=== PATIENT | female | born 1960 | race Caucasian/White ===

== ENCOUNTER 2022-06-29 18:26 | Inpatient (IN) | payer OTHER ==
[~2022-06-29] VITALS: Ht 160 cm; Wt 91.9 kg
[2022-06-29 19:20] LABS: BASOPHILS ABSOLUTE AUTO 0.05 K/mm3 (0.00-0.23); BASOPHILS PERCENT AUTO 1 % (0-2); EOSINOPHILS ABSOLUTE AUTO 0.13 K/mm3 (0.00-0.68); EOSINOPHILS PERCENT AUTO 2 % (0-6); Hematocrit 38.1 % (33.0-51.0); Hemoglobin 12.9 g/dL (11.5-16.0); IMMATURE GRAN ABSOLUTE AUTO 0.03 K/mm3 (0.00-0.10); IMMATURE GRAN PERCENT AUTO 0 % (0-1); LYMPHOCYTES ABSOLUTE AUTO 2.12 K/mm3 (0.84-5.20); LYMPHOCYTES PERCENT AUTO 30 % (21-46); MONOCYTES ABSOLUTE AUTO 0.56 K/mm3 (0.16-1.47); MONOCYTES PERCENT AUTO 8 % (4-13); Mean Corpuscular HGB 29.3 pg (26.0-34.0); Mean Corpuscular HGB Conc 33.9 g/dL (31.5-36.5); Mean Corpuscular Volume 87 fL (80-100); Mean Platelet Volume 10.1 fL (9.1-12.4); NEUTROPHILS ABSOLUTE AUTO 4.22 K/mm3 (1.96-9.15); NEUTROPHILS PERCENT AUTO 59 % (41-73); Platelet Count 194 K/mm3 (150-400); RDW Coefficient Variation 13.1 % (11.7-14.2); RDW Standard Deviation 40.9 fL (35.1-46.3); White Blood Cell Count 7.11 K/mm3 (4.00-11.30)
[2022-06-29 19:39] LABS: Albumin, Blood 3.3 g/dL (3.4-5.0); Albumin/Globulin Ratio 0.8 (0.8-1.8); Bilirubin, Total 0.2 mg/dL (0.1-1.0); Bun/Creatinine Ratio 18.6 (12.0-20.0); Calcium, Blood 8.8 mg/dL (8.5-10.1); Creatinine, Blood 1.13 mg/dL (0.40-1.00); Globulin, Blood 4.1 g/dL (2.2-4.0); Potassium, Blood 4.2 mmol/L (3.5-5.5); Total Protein, Blood 7.4 g/dL (6.4-8.2)
[2022-06-29 19:58] LABS: Source, Urine Clean Catch
[2022-06-29 20:02] LABS: Appearance, Urine Clear (Clear); Bilirubin, Urine Neg (Neg); Blood, Urine Neg (Neg); Glucose Qualitative, Urine 4+ (Neg); Ketones, Urine Neg (Neg); Leukocyte Esterase, Urine Neg (Neg); Nitrite, Urine Neg (Neg); Protein, Urine 3+ (Neg); Specific Gravity, Urine 1.015 (1.003-1.022); Urobilinogen, Urine NORM (Normal)
[2022-06-29 20:07] LABS: Color, Urine Pale Yellow (P-Yellow)
[2022-06-29 20:09] LABS: Bacteria Few /hpf; Red Blood Cells, Urine 0-2 /hpf (0-2); Squamous Epithelial Cells Rare /hpf (Few); White Blood Cells, Urine 0-2 /hpf (0-5)
[2022-06-29 21:11] LABS: D-Dimer, Quantitative 2.44 mg/L FEU (0.00-0.52); International Normalized Ratio 1.04; Prothrombin Time Results 10.9 Sec (9.7-11.5)
[2022-06-29 21:27] LABS: Anti-Xa UFH, PHA Monitoring <0.10 IU/mL
[2022-06-30] MEDS ORDERED: EZET10 (01:05)
[2022-06-30] MEDS ORDERED: AMLO5 PO (01:09)
[2022-06-30] MEDS ORDERED: ZYRTEC10 M1 PO (01:09)
[2022-06-30] MEDS ORDERED: QUET100 PO (01:09)
[2022-06-30] MEDS ORDERED: GLIM2 PO (01:10)
[2022-06-30] MEDS ORDERED: ZOCOR20 MG PO (01:11)
[2022-06-30] MEDS ORDERED: LISI5 PO (01:13)
[2022-06-30] MEDS ORDERED: LATUDA120 M1 PO (01:13)
[2022-06-30] MEDS ORDERED: BENADRYL25 MG PO (01:15)
[2022-06-30] MEDS ORDERED: VILAZODONE HCL20 MG PO (01:16)
[2022-06-30] MEDS ORDERED: PREG150 (01:16)
[2022-06-30] MEDS ORDERED: OMEP20ER PO (01:17)
[2022-06-30 04:07] LABS: BASOPHILS ABSOLUTE AUTO 0.05 K/mm3 (0.00-0.23); BASOPHILS PERCENT AUTO 1 % (0-2); EOSINOPHILS ABSOLUTE AUTO 0.17 K/mm3 (0.00-0.68); EOSINOPHILS PERCENT AUTO 2 % (0-6); Hematocrit 36.7 % (33.0-51.0); Hemoglobin 12.4 g/dL (11.5-16.0); IMMATURE GRAN ABSOLUTE AUTO 0.03 K/mm3 (0.00-0.10); IMMATURE GRAN PERCENT AUTO 0 % (0-1); LYMPHOCYTES ABSOLUTE AUTO 2.94 K/mm3 (0.84-5.20); LYMPHOCYTES PERCENT AUTO 39 % (21-46); MONOCYTES ABSOLUTE AUTO 0.53 K/mm3 (0.16-1.47); MONOCYTES PERCENT AUTO 7 % (4-13); Mean Corpuscular HGB 29.2 pg (26.0-34.0); Mean Corpuscular HGB Conc 33.8 g/dL (31.5-36.5); Mean Corpuscular Volume 87 fL (80-100); Mean Platelet Volume 10.1 fL (9.1-12.4); NEUTROPHILS ABSOLUTE AUTO 3.87 K/mm3 (1.96-9.15); NEUTROPHILS PERCENT AUTO 51 % (41-73); Platelet Count 182 K/mm3 (150-400); RDW Coefficient Variation 13.3 % (11.7-14.2); RDW Standard Deviation 40.9 fL (35.1-46.3); Red Blood Cell Count 4.24 M/mm3 (3.80-5.20); White Blood Cell Count 7.59 K/mm3 (4.00-11.30)
[2022-06-30 04:42] LABS: LDL/HDL RATIO 3.5
[2022-06-30 04:43] LABS: Alanine Aminotransfer (ALT/SGP 65 U/L (12-78); Albumin, Blood 3.2 g/dL (3.4-5.0); Albumin/Globulin Ratio 0.9 (0.8-1.8); Alk Phos 89 U/L (50-136); Anion Gap 6 mmol/L (6-16); Aspartate Aminotrans (AST/SGOT 42 U/L (12-37); Bilirubin, Total 0.2 mg/dL (0.1-1.0); Blood Urea Nitrogen 23 mg/dL (8-24); Bun/Creatinine Ratio 17.7 (12.0-20.0); CHOL/HDL RATIO 6.4; CO2, Blood 28 mmol/L (21-32); Chloride, Blood 107 mmol/L (98-108); Cholesterol 231 mg/dL (50-200); Globulin, Blood 3.6 g/dL (2.2-4.0); Glomerular Filtration Rate 47 (60-); Glucose, Blood 261 mg/dL (70-99); HDL Cholesterol 36 mg/dL (>39); Low Density Lipoprotein Chol 125 mg/dL (0-110); Potassium, Blood 4.2 mmol/L (3.5-5.5); Sodium, Blood 141 mmol/L (136-145); Total Protein, Blood 6.8 g/dL (6.4-8.2); Triglycerides 348 mg/dL (30-160); Very Low Density Lipoprot Chol 69 mg/dL (6-32)
--- NOTE | 2022-06-30 06:45 | NUR ---
SHIFT SUMMARY ED ADMIT TO PCU13 THIS SHIFT. A/OX4, SBA TO BATHROOM. DENIES CHEST PAIN/PRESSURE AT THIS TIME, HEPARIN DRIP RUNNING. TELE SR IN THE 80S. HEALED LESIONS TO BUE/BLE, PT STATES SCABIES INFECTION SEVERAL MONTHS AGO. CARDIOLOGY CONSULT CALLED IN TO ANSWERING SERVICE. VSS, NO ACUTE CHANGES AT THIS TIME. BED IN LOWEST POSITION WITH CALL LIGHT IN REACH. WILL CONTINUE TO MONITOR AND REPORT TO ONCOMING RN.
--- NOTE | 2022-06-30 10:47 | NUR ---
CARE NOTE DR. CHÁVEZ REQUESTED THAT THIS NURSE REVIEW IF PT RECEIVED 325 OF ASPIRIN IN ED, PER EMAR PT DID RECEIVE 325 DOSE WELL DOSE DUE THIS AM. SEE EMAR TO VERIFY.
--- NOTE | 2022-06-30 12:55 | NUR ---
CARE NOTE PT BACK FROM [facility] ATTENDANT APPROX. 1225. TR BAND IN PLACE ON R RADIAL SITE W/ NO SIGNS OF APPARENT BLEEDING OR HEMATOMA NOTED. FAMILY IS AT BEDSIDE, VSS, PT IS ON RA AND EATING A SNACK. TRAY ORDERED BY THIS RN. PT REPORTED THAT SHE DOES NOT HAVE HER HOME MEDS THAT ARE RECONCILED IN EMAR, PHARMACY MADE AWARE. WILL CONTINUE TO MONITOR.
--- NOTE | 2022-06-30 16:40 | NUR ---
CARE NOTE TR BAND DEFLATED AT 1610, ARM BOARD IN PLACE.
[2022-06-30 16:49] LABS: SARS-Cov-2 (COVID-19) PCR, MMC NEGATIVE (NEGATIVE)
--- NOTE | 2022-06-30 16:59 | NUR ---
SHIFT SUMMARY PT IS ALERT AND ORIENTED X 4, VSS. SPO2 >95% VIA ROOM AIR, HR SINUS RYTHM 90'S PER TELE MONITORING. PT ARRIVED BACK FROM [facility] APPROX. 1215. SHE HAS A RIGHT RADIAL ACCESS SITE. TR BAND IS DEFLATED, ARM BOARD IS IN PLACE. THERE IS NO APPARENT SIGN OF BLEEDING. SHE HAS CONTINUED TO DENY FEELINGS OF CHEST PAIN/PRESSURE. SHE DENIES FEELING SOB. NAUSEA WAS REPORTED THIS MORNING BUT HAS SINCE RESOLVED. SHE HAS DENIED FEELINGS OF NUMBNESS OR TINGLING IN EXTREMETIES. NO COUGH NOTED. SHE HAS AMBULATED TO BATHROOM A SBA TO MANAGE LINES. PG IN [place] IS SALINE LOCKED. IV IN RIGHT FOREARM IS SALINE LOCKED. FAMILY HAS BEEN AT BEDSIDE DURING SHIFT. HAS BEEN AT BEDSIDE WELL WAITING IN ICU LOUNGE. PT'S COMES AND GOES FROM PT ROOM MULTIPLE TIMES PER HOUR AND HAS BEEN ASKED TO REDUCE NUMBER OF TIMES HE ENTERS/EXITS PT ROOM BY THIS NURSE. TRAY NOW HAS BEEN ORDERED 2X BY THIS NURSE W/ NO SUCCESS. SNACKS HAVE BEEN BROUGHT TO THE PT SINCE SHE DID NOT RECIEVE A LUNCH TRAY. DAUGHTER AND ARE NOW AT BEDSIDE. WILL CONTINUE TO MONITOR UNTIL REPORT GIVEN. CALL LIGHT IS IN REACH.
--- NOTE | 2022-06-30 21:22 | NUR ---
PER CHARGE AND NURSE SKIN LAP BONDER, OK FOR PT'S FAMILY TO BOARD IN ROOM OVERNIGHT
--- NOTE | 2022-07-01 06:38 | NUR ---
SHIFT SUMMARY: uneventful with no acute events. Patient's father and sister at bedside; they boarded overnight. Pt is pleasant and cooperative; oriented and afebrile. She remains on telemetry overnight with no c/o cardiac sx. Lungs are clear. She is SBA but could probably be independent in her room with no cords or lines. No new integumentary issues noted. GI/ WDL. She is currently q6hr POCT BG checks. Unsure if want to transition to AC/HS etc. Will pass along to day shift. R radial site looks C/D/I with no hematoma or hemmorhage.
[2022-07-01 06:43] LABS: BASOPHILS ABSOLUTE AUTO 0.06 K/mm3 (0.00-0.23); BASOPHILS PERCENT AUTO 1 % (0-2); EOSINOPHILS ABSOLUTE AUTO 0.19 K/mm3 (0.00-0.68); EOSINOPHILS PERCENT AUTO 2 % (0-6); Hematocrit 38.9 % (33.0-51.0); Hemoglobin 12.8 g/dL (11.5-16.0); IMMATURE GRAN ABSOLUTE AUTO 0.02 K/mm3 (0.00-0.10); IMMATURE GRAN PERCENT AUTO 0 % (0-1); LYMPHOCYTES PERCENT AUTO 24 % (21-46); MONOCYTES ABSOLUTE AUTO 0.58 K/mm3 (0.16-1.47); MONOCYTES PERCENT AUTO 6 % (4-13); Mean Corpuscular HGB 29.2 pg (26.0-34.0); Mean Corpuscular HGB Conc 32.9 g/dL (31.5-36.5); Mean Corpuscular Volume 89 fL (80-100); Mean Platelet Volume 10.3 fL (9.1-12.4); NEUTROPHILS ABSOLUTE AUTO 6.59 K/mm3 (1.96-9.15); NEUTROPHILS PERCENT AUTO 67 % (41-73); Platelet Count 206 K/mm3 (150-400); RDW Coefficient Variation 13.6 % (11.7-14.2); RDW Standard Deviation 43.8 fL (35.1-46.3); Red Blood Cell Count 4.39 M/mm3 (3.80-5.20); White Blood Cell Count 9.84 K/mm3 (4.00-11.30)
[2022-07-01 07:01] LABS: Albumin, Blood 3.2 g/dL (3.4-5.0); Albumin/Globulin Ratio 0.8 (0.8-1.8); Bilirubin, Total 0.4 mg/dL (0.1-1.0); Calcium, Blood 9.6 mg/dL (8.5-10.1); Creatinine, Blood 1.2 mg/dL (0.40-1.00); Globulin, Blood 3.8 g/dL (2.2-4.0); Potassium, Blood 4.4 mmol/L (3.5-5.5)
--- NOTE | 2022-07-01 17:03 | NUR ---
SHIFT SUMMARY PT IS ALERT AND ORIENTED X 4, SHE IS PLEASANT AND COOPERATIVE W/ CARE AND IS ABLE TO MAKE HER NEEDS KNOWN. VSS. PER TELE MONITORING, HR IS SR-ST 90-110, BP STABLE, SHE HAS CONTINUED TO DENY FEELINGS OF CHEST PAIN/PRESSURE. SPO2 >95% VIA ROOM AIR, SHE DENIES FEELING SOB. DRY, NON-PRODUCTIVE COUGH NOTED. SHE DID REPORT FEELING NAUSEOUS ONCE DURING SHIFT THAT HAS SEEMED TO RESOLVE, SEE EMAR FOR NAUSEA MANAGEMENT. SHE HAS BEEN INDEPENDENT IN ROOM AND IS STEADY ON HER FEET, SHE HAS AMBULATED 2X IN HALLS W/ DAUGHTER AT HER SIDE. PG IN [place] IS SALINE LOCKED, L FOREARM IV IS SALINE LOCKED. SHE HAS ALSO SAT IN CHAIR FOR MEALS. R RADIAL ACCESS SITE REMAINS FREE FROM APPARENT BLEEDING AND IS COVERED W/ TRANSPARENT DRESSING, ARM BOARD IN PLACE SO TO REMIND PT TO LIMIT USE OF R ARM. NO ACUTE CHANGES NOTED. WILL CONTINUE TO MONITOR UNTIL REPORT GIVEN, PT NOW APPEARS TO BE SLEEPING, DAUGHTER IS STILL AT BEDSIDE. CALL LIGHT IN REACH.
--- NOTE | 2022-07-01 22:47 | NUR ---
ASSUMPTION OF CARE THIS RN ASSUMED CARE OF PT AT 1900. PT LYING DOWN IN BED, DAUGHTER AT BEDSIDE. VS; BP 148/83, SR W/HR 88, SP02 95% ON RA, RR 16, 98.8 F. PT DENIES CP OR PRESSURE, DENIES SOB, DIZZINESS, LIGHTHEADNESS, OR PALPITATIONS. PT JUST STATES SHE IS "TIRED" AND IS "READY FOR BED". PT EXPRESSES NO CONCERNS AT THIS TIME. PT UP INDEPENDENTLY IN THE ROOM AND TOLERATES WELL. CALL LIGHT IN REACH
--- NOTE | 2022-07-02 05:40 | NUR ---
SHIFT SUMMARY PT SLEPT WELL THROUGHOUT THE NIGHT. NO CHANGES FROM ASSUMPTION OF CARE NOTE. DAUGHTER STAYED OVERNIGHT AND WILL FOLLOW PT UP WHEN TRANSFERRED. PT DENIES CP, PRESSURE OR SOB. VSS. PT UP TO USE BATHROOM INDEPENDENTLY. NO ACUTE CHANGES THROUGHOUT THIS SHIFT. CALL LIGHT IN REACH.
[2022-07-02 06:21] LABS: BASOPHILS ABSOLUTE AUTO 0.07 K/mm3 (0.00-0.23); BASOPHILS PERCENT AUTO 1 % (0-2); EOSINOPHILS ABSOLUTE AUTO 0.14 K/mm3 (0.00-0.68); EOSINOPHILS PERCENT AUTO 1 % (0-6); Hemoglobin 12.9 g/dL (11.5-16.0); IMMATURE GRAN ABSOLUTE AUTO 0.05 K/mm3 (0.00-0.10); IMMATURE GRAN PERCENT AUTO 1 % (0-1); LYMPHOCYTES ABSOLUTE AUTO 1.74 K/mm3 (0.84-5.20); LYMPHOCYTES PERCENT AUTO 16 % (21-46); MONOCYTES PERCENT AUTO 5 % (4-13); Mean Corpuscular HGB 28.5 pg (26.0-34.0); Mean Corpuscular HGB Conc 33.1 g/dL (31.5-36.5); Mean Corpuscular Volume 86 fL (80-100); Mean Platelet Volume 9.9 fL (9.1-12.4); NEUTROPHILS ABSOLUTE AUTO 8.25 K/mm3 (1.96-9.15); NEUTROPHILS PERCENT AUTO 77 % (41-73); NRBC ABSOLUTE 0.02 K/mm3 (0.00-0.02); NRBC Auto 0.2 /100 WBC (0.0-0.2); Platelet Count 214 K/mm3 (150-400); RDW Coefficient Variation 13.5 % (11.7-14.2); RDW Standard Deviation 41.4 fL (35.1-46.3); Red Blood Cell Count 4.52 M/mm3 (3.80-5.20); White Blood Cell Count 10.75 K/mm3 (4.00-11.30)
[2022-07-02 07:28] LABS: Albumin, Blood 3.4 g/dL (3.4-5.0); Albumin/Globulin Ratio 0.9 (0.8-1.8); Bilirubin, Total 0.7 mg/dL (0.1-1.0); Bun/Creatinine Ratio 17.3 (12.0-20.0); Calcium, Blood 9.7 mg/dL (8.5-10.1); Creatinine, Blood 1.1 mg/dL (0.40-1.00); Globulin, Blood 3.8 g/dL (2.2-4.0); Potassium, Blood 4.3 mmol/L (3.5-5.5); Total Protein, Blood 7.2 g/dL (6.4-8.2)
--- NOTE | 2022-07-02 10:14 | NUR ---
REPORT CALLED TO CRITICAL CARE UNIT AT [facility] AT 1015.
--- NOTE | 2022-07-02 10:15 | NUR ---
TRANSFER SUMMARY PT WAS PICKED UP BY [facility] AT APPROXIMATELY 0945. ALL PERSONAL BELONGINGS WERE IN THE POSSESSION OF FAMILY. HAND OFF REPORT GIVEN TO MEDICAL TRANSPORT PERSONNEL.
== END 2022-07-02 09:38 | disposition short-term general hospital (02) | DRG 282 ==
LOC: ER 18:26 → PCU 23:00
PROVIDERS: Emergency Medicine; Family Medicine; Internal Medicine Cardiovascular Disease; Student in an Organized Health Care Education/Training Program; ADMIT Family Medicine
PROC: 4A023N7 Measurement of Cardiac Sampling and Pressure, Left Heart, Percutaneous Approach (ICD-10-PCS; principal; 2022-06-30)
PROC: B211YZZ Fluoroscopy of Multiple Coronary Arteries using Other Contrast (ICD-10-PCS; 2022-06-30)
PROC: B215YZZ Fluoroscopy of Left Heart using Other Contrast (ICD-10-PCS; 2022-06-30)
DX: I21.4 Non-ST elevation (NSTEMI) myocardial infarction (principal); Z20.822 Contact with and (suspected) exposure to COVID-19; E11.22 Type 2 diabetes mellitus with diabetic chronic kidney disease; E11.51 Type 2 diabetes mellitus with diabetic peripheral angiopathy without gangrene; Z28.21 Immunization not carried out because of patient refusal; I25.10 Atherosclerotic heart disease of native coronary artery without angina pectoris; E78.5 Hyperlipidemia, unspecified; E78.41 Elevated Lipoprotein(a); I12.9 Hypertensive chronic kidney disease with stage 1 through stage 4 chronic kidney disease, or unspecified chronic kidney disease; N18.30 Chronic kidney disease, stage 3 unspecified; J44.9 Chronic obstructive pulmonary disease, unspecified; I05.9 Rheumatic mitral valve disease, unspecified; Z95.1 Presence of aortocoronary bypass graft; Z98.51 Tubal ligation status; Z90.710 Acquired absence of both cervix and uterus; Z87.891 Personal history of nicotine dependence; Z88.8 Allergy status to other drugs, medicaments and biological substances; Z79.84 Long term (current) use of oral hypoglycemic drugs; Z79.899 Other long term (current) drug therapy
CPT/HCPCS: 36415; 71045; 71260; 76937; 80053; 80061; 81001; 82947; 83036; 83690; 84443; 84484; 85025; 85379; 85520; 85610; 85730; 93005; 93010; 93306; 93458; 93880; 96365; 99152; 99153; 99285-25; A9270; C1751; C1769; C1887; C1894; J1644; J1650; J1815; J2250; J3010; J7030; J7040; J7050; J7120; Q9967; U0004

== ENCOUNTER 2022-09-25 11:47 | Emergency (ER) | payer OTHER ==
[~2022-09-25] VITALS: Ht 160 cm; Wt 89.8 kg
[~2022-09-25 11:47] MED LIST: AMLO5 PO; BENADRYL25 MG PO; DULCOLAX STOOL100 M3 PO; EZET10 PO; GLIM2 PO; GLIP5 PO; HYDR1TAB94 PO; LATUDA120 M1 PO; LISI5 PO; LOSA25 PO; METO25 PO; OMEP20ER PO; PREG150 PO; QUET100 PO; SEROQUEL100 MG PO; VILAZODONE HCL20 MG PO; WARF3 PO; ZOCOR20 MG PO; ZYRTEC10 M1 PO
[2022-09-25 12:13] LABS: BASOPHILS ABSOLUTE AUTO 0.04 K/mm3 (0.00-0.23); BASOPHILS PERCENT AUTO 1 % (0-2); EOSINOPHILS ABSOLUTE AUTO 0.13 K/mm3 (0.00-0.68); EOSINOPHILS PERCENT AUTO 2 % (0-6); Hemoglobin 11.6 g/dL (11.5-16.0); IMMATURE GRAN ABSOLUTE AUTO 0.02 K/mm3 (0.00-0.10); IMMATURE GRAN PERCENT AUTO 0 % (0-1); LYMPHOCYTES ABSOLUTE AUTO 1.72 K/mm3 (0.84-5.20); LYMPHOCYTES PERCENT AUTO 23 % (21-46); MONOCYTES ABSOLUTE AUTO 0.47 K/mm3 (0.16-1.47); MONOCYTES PERCENT AUTO 6 % (4-13); Mean Corpuscular HGB 28.6 pg (26.0-34.0); Mean Corpuscular HGB Conc 32.2 g/dL (31.5-36.5); Mean Corpuscular Volume 89 fL (80-100); Mean Platelet Volume 9.6 fL (9.1-12.4); NEUTROPHILS ABSOLUTE AUTO 5.14 K/mm3 (1.96-9.15); NEUTROPHILS PERCENT AUTO 68 % (41-73); Platelet Count 212 K/mm3 (150-400); RDW Coefficient Variation 15.2 % (11.7-14.2); RDW Standard Deviation 48.7 fL (35.1-46.3); Red Blood Cell Count 4.05 M/mm3 (3.80-5.20); White Blood Cell Count 7.52 K/mm3 (4.00-11.30)
[2022-09-25 12:28] LABS: Albumin, Blood 3.5 g/dL (3.4-5.0); Albumin/Globulin Ratio 0.8 (0.8-1.8); Bilirubin, Total 0.2 mg/dL (0.1-1.0); Bun/Creatinine Ratio 19.6 (12.0-20.0); Calcium, Blood 9.5 mg/dL (8.5-10.1); Creatinine, Blood 1.43 mg/dL (0.40-1.00); Globulin, Blood 4.2 g/dL (2.2-4.0); Potassium, Blood 4.7 mmol/L (3.5-5.5); Total Protein, Blood 7.7 g/dL (6.4-8.2)
[2022-09-25 14:00] LABS: Source, Urine Voided
[2022-09-25 14:18] LABS: Bilirubin, Urine Neg (Neg); Blood, Urine Neg (Neg); Color, Urine Yellow (P-Yellow); Glucose Qualitative, Urine Neg (Neg); Ketones, Urine Neg (Neg); Leukocyte Esterase, Urine Neg (Neg); Nitrite, Urine Neg (Neg); Protein, Urine 2+ (Neg); Specific Gravity, Urine 1.015 (1.003-1.022); Urobilinogen, Urine NORM (Normal)
[2022-09-25 15:37] LABS: Appearance, Urine Hazy (Clear); Bacteria Mod /hpf; Hyaline Casts 0-2 /lpf (0-2); Mucus Light (0-Heavy); Red Blood Cells, Urine 0-2 /hpf (0-2); Squamous Epithelial Cells Few /hpf (Few); Transitional Epithelial Cells Rare /hpf (0-Rare); White Blood Cells, Urine 0-2 /hpf (0-5)
[2022-09-25] MEDS ORDERED: NITR100CA PO (16:02)
== END 2022-09-25 16:32 | disposition home or self-care (01) ==
LOC: ER 11:47
PROVIDERS: Emergency Medicine
DX: N39.0 Urinary tract infection, site not specified (principal); I10 Essential (primary) hypertension; I25.10 Atherosclerotic heart disease of native coronary artery without angina pectoris; E11.9 Type 2 diabetes mellitus without complications; J44.9 Chronic obstructive pulmonary disease, unspecified; I25.2 Old myocardial infarction
CPT/HCPCS: 80053; 81001; 85025; 96361; 96374; 96375; 99284-25; J1885; J2765; J7030

== ENCOUNTER 2022-10-27 21:12 | Emergency (ER) | payer OTHER ==
[~2022-10-27] VITALS: Ht 160 cm; Wt 86.2 kg
[~2022-10-27 21:12] MED LIST changes: +ALBU90OI INH; +ASPI81CH PO; +NITR100CA PO; +PRED20 PO
[2022-10-27 22:12] LABS: BASOPHILS ABSOLUTE AUTO 0.02 K/mm3 (0.00-0.23); BASOPHILS PERCENT AUTO 0 % (0-2); EOSINOPHILS ABSOLUTE AUTO 0.18 K/mm3 (0.00-0.68); EOSINOPHILS PERCENT AUTO 2 % (0-6); Hematocrit 36.7 % (33.0-51.0); Hemoglobin 11.8 g/dL (11.5-16.0); IMMATURE GRAN ABSOLUTE AUTO 0.05 K/mm3 (0.00-0.10); IMMATURE GRAN PERCENT AUTO 1 % (0-1); LYMPHOCYTES ABSOLUTE AUTO 2.29 K/mm3 (0.84-5.20); LYMPHOCYTES PERCENT AUTO 25 % (21-46); MONOCYTES ABSOLUTE AUTO 0.71 K/mm3 (0.16-1.47); MONOCYTES PERCENT AUTO 8 % (4-13); Mean Corpuscular HGB Conc 32.2 g/dL (31.5-36.5); Mean Corpuscular Volume 90 fL (80-100); Mean Platelet Volume 9.3 fL (9.1-12.4); NEUTROPHILS ABSOLUTE AUTO 5.87 K/mm3 (1.96-9.15); NEUTROPHILS PERCENT AUTO 64 % (41-73); Platelet Count 184 K/mm3 (150-400); RDW Standard Deviation 49.6 fL (35.1-46.3); Red Blood Cell Count 4.07 M/mm3 (3.80-5.20); White Blood Cell Count 9.12 K/mm3 (4.00-11.30)
[2022-10-27 22:29] LABS: Albumin, Blood 3.3 g/dL (3.4-5.0); Albumin/Globulin Ratio 0.9 (0.8-1.8); Bilirubin, Total 0.2 mg/dL (0.1-1.0); Bun/Creatinine Ratio 15.2 (12.0-20.0); Calcium, Blood 9.4 mg/dL (8.5-10.1); Creatinine, Blood 1.05 mg/dL (0.40-1.00); Globulin, Blood 3.8 g/dL (2.2-4.0); Potassium, Blood 4.3 mmol/L (3.5-5.5); Total Protein, Blood 7.1 g/dL (6.4-8.2)
[2022-10-28 00:15] VITALS: BP 147/75
== END 2022-10-28 00:38 | disposition home or self-care (01) ==
LOC: ER 21:12
PROVIDERS: Student in an Organized Health Care Education/Training Program
DX: R07.2 Precordial pain (principal); E11.65 Type 2 diabetes mellitus with hyperglycemia; Z79.899 Other long term (current) drug therapy; Z79.82 Long term (current) use of aspirin; Z88.8 Allergy status to other drugs, medicaments and biological substances; Z79.52 Long term (current) use of systemic steroids; I10 Essential (primary) hypertension; I25.10 Atherosclerotic heart disease of native coronary artery without angina pectoris; J44.9 Chronic obstructive pulmonary disease, unspecified; I25.2 Old myocardial infarction; E78.5 Hyperlipidemia, unspecified; E78.00 Pure hypercholesterolemia, unspecified
CPT/HCPCS: 36415; 71046; 71275; 74175; 80053; 84484; 85025; 93005; 93010; 99285-25; A9270; Q9967

== ENCOUNTER 2022-12-26 15:25 | Inpatient (IN) | payer OTHER ==
[2022-12-26 16:02] LABS: BASOPHILS ABSOLUTE AUTO 0.09 K/mm3 (0.00-0.23); BASOPHILS PERCENT AUTO 1 % (0-2); EOSINOPHILS PERCENT AUTO 2 % (0-6); Hematocrit 41.5 % (33.0-51.0); Hemoglobin 13.6 g/dL (11.5-16.0); IMMATURE GRAN ABSOLUTE AUTO 0.04 K/mm3 (0.00-0.10); IMMATURE GRAN PERCENT AUTO 1 % (0-1); LYMPHOCYTES ABSOLUTE AUTO 2.39 K/mm3 (0.84-5.20); LYMPHOCYTES PERCENT AUTO 28 % (21-46); MONOCYTES ABSOLUTE AUTO 0.75 K/mm3 (0.16-1.47); MONOCYTES PERCENT AUTO 9 % (4-13); Mean Corpuscular HGB 29.8 pg (26.0-34.0); Mean Corpuscular HGB Conc 32.8 g/dL (31.5-36.5); Mean Corpuscular Volume 91 fL (80-100); Mean Platelet Volume 9.7 fL (9.1-12.4); NEUTROPHILS ABSOLUTE AUTO 4.94 K/mm3 (1.96-9.15); NEUTROPHILS PERCENT AUTO 59 % (41-73); Platelet Count 257 K/mm3 (150-400); RDW Coefficient Variation 14.6 % (11.7-14.2); RDW Standard Deviation 48.1 fL (35.1-46.3); Red Blood Cell Count 4.57 M/mm3 (3.80-5.20); White Blood Cell Count 8.41 K/mm3 (4.00-11.30)
[2022-12-26 16:33] LABS: Albumin, Blood 3.8 g/dL (3.4-5.0); Albumin/Globulin Ratio 0.9 (0.8-1.8); Bilirubin, Total 0.2 mg/dL (0.1-1.0); Bun/Creatinine Ratio 16.7 (12.0-20.0); Calcium, Blood 9.8 mg/dL (8.5-10.1); Creatinine, Blood 1.56 mg/dL (0.40-1.00); Globulin, Blood 4.1 g/dL (2.2-4.0); Potassium, Blood 4.6 mmol/L (3.5-5.5); Total Protein, Blood 7.9 g/dL (6.4-8.2)
[2022-12-26 17:51] LABS: Source, Urine Clean Catch
[2022-12-26 17:54] LABS: Appearance, Urine Clear (Clear); Bilirubin, Urine Neg (Neg); Blood, Urine Neg (Neg); Color, Urine Yellow (P-Yellow); Glucose Qualitative, Urine Neg (Neg); Ketones, Urine Neg (Neg); Leukocyte Esterase, Urine Neg (Neg); Nitrite, Urine Neg (Neg); Protein, Urine 3+ (Neg); Specific Gravity, Urine 1.025 (1.003-1.022); Urobilinogen, Urine NORM (Normal)
[2022-12-26 18:06] LABS: Bacteria Few /hpf; Red Blood Cells, Urine 0-2 /hpf (0-2); Squamous Epithelial Cells Few /hpf (Few)
[2022-12-26] MEDS ORDERED: TRAM50 PO (20:36)
[2022-12-26] MEDS ORDERED: CYCL10 PO (20:38)
[2022-12-26 22:03] VITALS: BP 139/90
[2022-12-27 02:33] VITALS: BP 137/71
[2022-12-27 05:14] LABS: BASOPHILS ABSOLUTE AUTO 0.04 K/mm3 (0.00-0.23); BASOPHILS PERCENT AUTO 1 % (0-2); EOSINOPHILS ABSOLUTE AUTO 0.14 K/mm3 (0.00-0.68); EOSINOPHILS PERCENT AUTO 2 % (0-6); Hemoglobin 11.4 g/dL (11.5-16.0); IMMATURE GRAN ABSOLUTE AUTO 0.02 K/mm3 (0.00-0.10); IMMATURE GRAN PERCENT AUTO 0 % (0-1); LYMPHOCYTES ABSOLUTE AUTO 1.68 K/mm3 (0.84-5.20); LYMPHOCYTES PERCENT AUTO 27 % (21-46); MONOCYTES PERCENT AUTO 8 % (4-13); Mean Corpuscular HGB 29.3 pg (26.0-34.0); Mean Corpuscular HGB Conc 32.6 g/dL (31.5-36.5); Mean Corpuscular Volume 90 fL (80-100); Mean Platelet Volume 9.6 fL (9.1-12.4); NEUTROPHILS ABSOLUTE AUTO 3.84 K/mm3 (1.96-9.15); NEUTROPHILS PERCENT AUTO 62 % (41-73); Platelet Count 177 K/mm3 (150-400); RDW Coefficient Variation 14.8 % (11.7-14.2); RDW Standard Deviation 48.4 fL (35.1-46.3); Red Blood Cell Count 3.89 M/mm3 (3.80-5.20); White Blood Cell Count 6.22 K/mm3 (4.00-11.30)
[2022-12-27 05:39] LABS: Albumin/Globulin Ratio 0.9 (0.8-1.8); Bilirubin, Total 0.2 mg/dL (0.1-1.0); Bun/Creatinine Ratio 19.6 (12.0-20.0); Calcium, Blood 8.6 mg/dL (8.5-10.1); Creatinine, Blood 1.63 mg/dL (0.40-1.00); Globulin, Blood 3.2 g/dL (2.2-4.0); Magnesium, Blood 1.9 mg/dL (1.6-2.4); Potassium, Blood 4.9 mmol/L (3.5-5.5); Total Protein, Blood 6.2 g/dL (6.4-8.2)
[2022-12-27 07:27] VITALS: BP 118/62
--- NOTE | 2022-12-27 08:56 | NUR ---
INSTALLATION TECH SUMMARY Patient slept most of the night after arrival to the floor. A&Ox4m OOB independently, NO COMPLAINTS OF CHEST PAIN OR SOB OVERNIGHT. Patient aware of the concern for her elevated d dimer, and how it is important that we find a way that will work for her and be an effective method of ruling out any blockage or thrombus. Spoke with Cande Mendez this morning regarding mutual concerns. VQ ?
[2022-12-27 15:53] VITALS: BP 97/84
--- NOTE | 2022-12-27 19:20 | NUR ---
PT DISCHARGED THE PT VERBALIZED UNDERSTANDING OF THE DC INSTRUCTIONS. THE PT WAS REMINDED TO FOLLOW UP WITH HER PCP FOR A POST HOSPITAL REVIEW. THE PT WAS TRANSFERED VIA WHEELCHAIR ACCOMPANIED BY THE PRINTED FORMS PROOFREADER AND HER FAMILY
== END 2022-12-27 17:46 | disposition home or self-care (01) | DRG 189 ==
LOC: ER 15:25 → MEDS 15:26
PROVIDERS: Physician Assistant; Student in an Organized Health Care Education/Training Program; ADMIT Student in an Organized Health Care Education/Training Program
DX: J96.21 Acute and chronic respiratory failure with hypoxia (principal); I25.10 Atherosclerotic heart disease of native coronary artery without angina pectoris; R07.89 Other chest pain; E11.51 Type 2 diabetes mellitus with diabetic peripheral angiopathy without gangrene; E11.59 Type 2 diabetes mellitus with other circulatory complications; I12.9 Hypertensive chronic kidney disease with stage 1 through stage 4 chronic kidney disease, or unspecified chronic kidney disease; E11.22 Type 2 diabetes mellitus with diabetic chronic kidney disease; N18.9 Chronic kidney disease, unspecified; R94.6 Abnormal results of thyroid function studies; K76.0 Fatty (change of) liver, not elsewhere classified; I25.2 Old myocardial infarction; I95.9 Hypotension, unspecified; E78.00 Pure hypercholesterolemia, unspecified; J44.9 Chronic obstructive pulmonary disease, unspecified; E11.65 Type 2 diabetes mellitus with hyperglycemia; T50.8X5A Adverse effect of diagnostic agents, initial encounter; Z79.84 Long term (current) use of oral hypoglycemic drugs; Z79.2 Long term (current) use of antibiotics; Z79.811 Long term (current) use of aromatase inhibitors; Z95.1 Presence of aortocoronary bypass graft; Z79.51 Long term (current) use of inhaled steroids; Z86.79 Personal history of other diseases of the circulatory system; Z90.710 Acquired absence of both cervix and uterus; Z87.891 Personal history of nicotine dependence; Z98.51 Tubal ligation status; Z90.49 Acquired absence of other specified parts of digestive tract; Z88.8 Allergy status to other drugs, medicaments and biological substances; Z79.82 Long term (current) use of aspirin; Z79.899 Other long term (current) drug therapy
CPT/HCPCS: 36415; 71046; 74177; 78582; 80053; 81001; 82947; 83735; 83880; 84443; 84484; 85025; 85379; 93005; 93010; 96374-59; 99285-25; A9270; A9540; G0378; J1815; J2405; J7030; J7120; Q9967

== ENCOUNTER 2023-02-21 08:35 | Emergency (ER) | payer OTHER ==
[~2023-02-21] VITALS: Ht 160 cm; Wt 91.6 kg
[~2023-02-21 08:35] MED LIST changes: +CYCL10 PO; +TRAM50 PO
[2023-02-21 09:31] VITALS: BP 142/83
[2023-02-21 09:49] LABS: Source, Urine Clean Catch
[2023-02-21 09:57] LABS: Bilirubin, Urine Neg (Neg); Blood, Urine Neg (Neg); Glucose Qualitative, Urine 4+ (Neg); Ketones, Urine Neg (Neg); Leukocyte Esterase, Urine Neg (Neg); Nitrite, Urine Neg (Neg); Protein, Urine 3+ (Neg); Urobilinogen, Urine NORM (Normal)
[2023-02-21 10:08] LABS: Appearance, Urine Clear (Clear); Color, Urine Pale Yellow (P-Yellow)
[2023-02-21 10:10] LABS: Bacteria Rare /hpf; Red Blood Cells, Urine Not Seen /hpf (0-2); Squamous Epithelial Cells Few /hpf (Few); White Blood Cells, Urine 0-2 /hpf (0-5); Yeast/Fungi Urine Few /hpf
[2023-02-21] MEDS ORDERED: FLUC150A PO (10:33)
== END 2023-02-21 10:40 | disposition home or self-care (01) ==
LOC: ER 08:35
PROVIDERS: Physician Assistant
DX: R39.9 Unspecified symptoms and signs involving the genitourinary system (principal); I10 Essential (primary) hypertension; E11.9 Type 2 diabetes mellitus without complications; I25.10 Atherosclerotic heart disease of native coronary artery without angina pectoris; J44.9 Chronic obstructive pulmonary disease, unspecified; E78.00 Pure hypercholesterolemia, unspecified; Z88.8 Allergy status to other drugs, medicaments and biological substances; Z79.82 Long term (current) use of aspirin; Z79.52 Long term (current) use of systemic steroids; Z79.899 Other long term (current) drug therapy; Z87.891 Personal history of nicotine dependence
CPT/HCPCS: 81001; 99283

== ENCOUNTER 2023-02-24 13:48 | Emergency (ER) | payer OTHER ==
[~2023-02-24] VITALS: Ht 160 cm; Wt 90.7 kg
[~2023-02-24 13:48] MED LIST changes: +FLUC150A PO
[2023-02-24 14:18] LABS: BASOPHILS ABSOLUTE AUTO 0.05 K/mm3 (0.00-0.23); BASOPHILS PERCENT AUTO 1 % (0-2); EOSINOPHILS ABSOLUTE AUTO 0.09 K/mm3 (0.00-0.68); EOSINOPHILS PERCENT AUTO 1 % (0-6); Hematocrit 40.6 % (33.0-51.0); Hemoglobin 13.7 g/dL (11.5-16.0); IMMATURE GRAN ABSOLUTE AUTO 0.02 K/mm3 (0.00-0.10); IMMATURE GRAN PERCENT AUTO 0 % (0-1); LYMPHOCYTES ABSOLUTE AUTO 1.19 K/mm3 (0.84-5.20); LYMPHOCYTES PERCENT AUTO 14 % (21-46); MONOCYTES ABSOLUTE AUTO 0.45 K/mm3 (0.16-1.47); MONOCYTES PERCENT AUTO 5 % (4-13); Mean Corpuscular HGB 30.4 pg (26.0-34.0); Mean Corpuscular HGB Conc 33.7 g/dL (31.5-36.5); Mean Corpuscular Volume 90 fL (80-100); Mean Platelet Volume 10.6 fL (9.1-12.4); NEUTROPHILS ABSOLUTE AUTO 6.72 K/mm3 (1.96-9.15); NEUTROPHILS PERCENT AUTO 79 % (41-73); Platelet Count 205 K/mm3 (150-400); RDW Coefficient Variation 13.4 % (11.7-14.2); RDW Standard Deviation 43.7 fL (35.1-46.3); Red Blood Cell Count 4.51 M/mm3 (3.80-5.20); White Blood Cell Count 8.52 K/mm3 (4.00-11.30)
[2023-02-24 14:50] LABS: Albumin, Blood 3.8 g/dL (3.4-5.0); Albumin/Globulin Ratio 0.9 (0.8-1.8); Bilirubin, Total 0.4 mg/dL (0.1-1.0); Bun/Creatinine Ratio 14.9 (12.0-20.0); Creatinine, Blood 1.74 mg/dL (0.40-1.00); Globulin, Blood 4.1 g/dL (2.2-4.0); Potassium, Blood 5.4 mmol/L (3.5-5.5); Total Protein, Blood 7.9 g/dL (6.4-8.2)
[2023-02-24 16:00] VITALS: BP 126/77
[2023-02-24 16:28] LABS: Source, Urine Clean Catch
[2023-02-24 16:31] LABS: Appearance, Urine Clear (Clear); Bilirubin, Urine Neg (Neg); Blood, Urine Neg (Neg); Glucose Qualitative, Urine 4+ (Neg); Ketones, Urine Neg (Neg); Leukocyte Esterase, Urine Neg (Neg); Nitrite, Urine Neg (Neg); Protein, Urine 3+ (Neg); Specific Gravity, Urine 1.015 (1.003-1.022); Urobilinogen, Urine NORM (Normal)
[2023-02-24 16:35] LABS: Calcium, Ionized (POC) 1.31 mmol/L (1.10-1.46); Chloride (POC) 96 mmol/L (98-108); Creatinine (POC) 1.7 mg/dL (0.6-1.0); Glucose (ISTAT POC) 478 mg/dL (70-99); Hemoglobin (POC) 13.9 g/dL (12.0-16.0); Potassium (POC) 4.5 mmol/L (3.5-5.5); Sodium (POC) 132 mmol/L (135-148); Total CO2 (POC) 25 mmol/L (21-32)
[2023-02-24 16:46] LABS: Color, Urine Pale Yellow (P-Yellow)
[2023-02-24 16:53] LABS: Bacteria Few /hpf; Red Blood Cells, Urine 0-2 /hpf (0-2); Squamous Epithelial Cells Few /hpf (Few); White Blood Cells, Urine 0-2 /hpf (0-5); Yeast/Fungi Urine Rare /hpf
== END 2023-02-24 18:42 | disposition home or self-care (01) ==
LOC: ER 13:48
PROVIDERS: Emergency Medicine; Student in an Organized Health Care Education/Training Program
DX: I25.10 Atherosclerotic heart disease of native coronary artery without angina pectoris (principal); E11.65 Type 2 diabetes mellitus with hyperglycemia; R10.30 Lower abdominal pain, unspecified; Z88.8 Allergy status to other drugs, medicaments and biological substances; Z79.899 Other long term (current) drug therapy; Z79.84 Long term (current) use of oral hypoglycemic drugs; Z79.52 Long term (current) use of systemic steroids; I10 Essential (primary) hypertension; E11.9 Type 2 diabetes mellitus without complications; J44.9 Chronic obstructive pulmonary disease, unspecified; I25.2 Old myocardial infarction; E78.00 Pure hypercholesterolemia, unspecified; Z87.891 Personal history of nicotine dependence
CPT/HCPCS: 71046; 74176; 80047; 80053; 81001; 84484; 85014; 85025; 93005; 93010; 99285-25; A9270; J1815; J7030

== ENCOUNTER 2023-02-28 13:44 | Emergency (ER) | payer OTHER ==
[~2023-02-28] VITALS: Ht 160 cm; Wt 87.1 kg
[2023-02-28 15:00] LABS: Source, Urine Clean Catch
[2023-02-28 15:01] LABS: BASOPHILS ABSOLUTE AUTO 0.06 K/mm3 (0.00-0.23); BASOPHILS PERCENT AUTO 1 % (0-2); EOSINOPHILS ABSOLUTE AUTO 0.13 K/mm3 (0.00-0.68); EOSINOPHILS PERCENT AUTO 2 % (0-6); Hematocrit 39.9 % (33.0-51.0); Hemoglobin 13.1 g/dL (11.5-16.0); IMMATURE GRAN ABSOLUTE AUTO 0.03 K/mm3 (0.00-0.10); IMMATURE GRAN PERCENT AUTO 0 % (0-1); LYMPHOCYTES ABSOLUTE AUTO 2.23 K/mm3 (0.84-5.20); LYMPHOCYTES PERCENT AUTO 27 % (21-46); MONOCYTES ABSOLUTE AUTO 0.54 K/mm3 (0.16-1.47); MONOCYTES PERCENT AUTO 7 % (4-13); Mean Corpuscular HGB 29.6 pg (26.0-34.0); Mean Corpuscular HGB Conc 32.8 g/dL (31.5-36.5); Mean Corpuscular Volume 90 fL (80-100); Mean Platelet Volume 10.5 fL (9.1-12.4); NEUTROPHILS ABSOLUTE AUTO 5.16 K/mm3 (1.96-9.15); NEUTROPHILS PERCENT AUTO 63 % (41-73); Platelet Count 216 K/mm3 (150-400); RDW Coefficient Variation 13.6 % (11.7-14.2); RDW Standard Deviation 44.5 fL (35.1-46.3); Red Blood Cell Count 4.43 M/mm3 (3.80-5.20); White Blood Cell Count 8.15 K/mm3 (4.00-11.30)
[2023-02-28 15:14] LABS: Appearance, Urine Clear (Clear); Bilirubin, Urine Neg (Neg); Blood, Urine Neg (Neg); Color, Urine Yellow (P-Yellow); Glucose Qualitative, Urine 4+ (Neg); Ketones, Urine Neg (Neg); Leukocyte Esterase, Urine Neg (Neg); Nitrite, Urine Neg (Neg); Protein, Urine 3+ (Neg); Specific Gravity, Urine 1.015 (1.003-1.022); Urobilinogen, Urine NORM (Normal)
[2023-02-28 15:39] LABS: Squamous Epithelial Cells Mod /hpf (Few)
[2023-02-28 15:40] LABS: Bacteria Mod /hpf; Hyaline Casts 0-2 /lpf (0-2)
[2023-02-28 15:43] LABS: Albumin, Blood 3.5 g/dL (3.4-5.0); Albumin/Globulin Ratio 0.8 (0.8-1.8); Beta-hydroxybutyrate 1.5 mg/dL (0.2-2.8); Bilirubin, Total 0.3 mg/dL (0.1-1.0); Bun/Creatinine Ratio 19.9 (12.0-20.0); Calcium, Blood 9.3 mg/dL (8.5-10.1); Creatinine, Blood 1.91 mg/dL (0.40-1.00); Globulin, Blood 4.3 g/dL (2.2-4.0); Potassium, Blood 5.8 mmol/L (3.5-5.5); Total Protein, Blood 7.8 g/dL (6.4-8.2)
[2023-02-28 19:15] VITALS: BP 115/76
== END 2023-02-28 19:30 | disposition home or self-care (01) ==
LOC: ER 13:44
PROVIDERS: Physician Assistant
DX: I12.9 Hypertensive chronic kidney disease with stage 1 through stage 4 chronic kidney disease, or unspecified chronic kidney disease (principal); E11.22 Type 2 diabetes mellitus with diabetic chronic kidney disease; E11.65 Type 2 diabetes mellitus with hyperglycemia; N18.9 Chronic kidney disease, unspecified; Z87.891 Personal history of nicotine dependence; J44.9 Chronic obstructive pulmonary disease, unspecified; E78.5 Hyperlipidemia, unspecified; I25.2 Old myocardial infarction
CPT/HCPCS: 80053; 81001; 82010; 82947; 84132; 85025; 87086; 96360; 96361; 99283-25; J1815; J7030

== ENCOUNTER 2023-04-16 15:50 | Emergency (ER) | payer OTHER ==
[~2023-04-16] VITALS: Ht 160 cm; Wt 90.0 kg
[2023-04-16 18:26] VITALS: BP 114/67
== END 2023-04-16 19:38 | disposition home or self-care (01) ==
LOC: ER 15:50
DX: G44.209 Tension-type headache, unspecified, not intractable (principal); G43.909 Migraine, unspecified, not intractable, without status migrainosus; I12.9 Hypertensive chronic kidney disease with stage 1 through stage 4 chronic kidney disease, or unspecified chronic kidney disease; E11.22 Type 2 diabetes mellitus with diabetic chronic kidney disease; N18.9 Chronic kidney disease, unspecified; I25.10 Atherosclerotic heart disease of native coronary artery without angina pectoris; I25.2 Old myocardial infarction; E78.00 Pure hypercholesterolemia, unspecified; J44.9 Chronic obstructive pulmonary disease, unspecified; Z87.891 Personal history of nicotine dependence; Z88.8 Allergy status to other drugs, medicaments and biological substances; Z79.82 Long term (current) use of aspirin; Z79.899 Other long term (current) drug therapy
CPT/HCPCS: J0780; J1100; J1200; J1885; J7030

== ENCOUNTER 2023-04-25 11:09 | Emergency (ER) | payer OTHER ==
[~2023-04-25] VITALS: Ht 160 cm; Wt 90.3 kg
[2023-04-25 11:20] VITALS: BP 173/87
[2023-04-25] MEDS ORDERED: Zithromax250 MG PO (13:05)
== END 2023-04-25 13:15 | disposition home or self-care (01) ==
LOC: ER 11:09
DX: J44.1 Chronic obstructive pulmonary disease with (acute) exacerbation (principal); I12.9 Hypertensive chronic kidney disease with stage 1 through stage 4 chronic kidney disease, or unspecified chronic kidney disease; E11.22 Type 2 diabetes mellitus with diabetic chronic kidney disease; N18.9 Chronic kidney disease, unspecified; I25.10 Atherosclerotic heart disease of native coronary artery without angina pectoris; J44.9 Chronic obstructive pulmonary disease, unspecified; E78.00 Pure hypercholesterolemia, unspecified; Z88.8 Allergy status to other drugs, medicaments and biological substances; Z79.82 Long term (current) use of aspirin; Z79.899 Other long term (current) drug therapy; Z87.891 Personal history of nicotine dependence
CPT/HCPCS: 71046; 99283-25

== ENCOUNTER → 2023-05-15 | Outpatient (CLI) | payer OTHER ==
[~2023-05-15] MED LIST changes: +Zithromax250 MG PO
== END ==
LOC: LAB SHORT 13:20 → LAB 13:20
DX: H66.92 Otitis media, unspecified, left ear (principal)
CPT/HCPCS: 87070; 87106; 87205

== ENCOUNTER 2023-07-25 20:36 | Emergency (ER) | payer OTHER ==
[~2023-07-25] VITALS: Ht 160 cm; Wt 90.7 kg
[2023-07-25 21:21] LABS: Albumin, Blood 3.7 g/dL (3.4-5.0); Albumin/Globulin Ratio 0.9 (0.8-1.8); Bilirubin, Total 0.2 mg/dL (0.1-1.0); Bun/Creatinine Ratio 23.1 (12.0-20.0); Calcium, Blood 10.3 mg/dL (8.5-10.1); Creatinine, Blood 1.47 mg/dL (0.40-1.00); Potassium, Blood 4.6 mmol/L (3.5-5.5); Total Protein, Blood 7.7 g/dL (6.4-8.2)
[2023-07-25 21:32] LABS: BASOPHILS ABSOLUTE AUTO 0.05 K/mm3 (0.00-0.23); BASOPHILS PERCENT AUTO 1 % (0-2); EOSINOPHILS ABSOLUTE AUTO 0.14 K/mm3 (0.00-0.68); EOSINOPHILS PERCENT AUTO 2 % (0-6); Hematocrit 38.8 % (33.0-51.0); Hemoglobin 13.1 g/dL (11.5-16.0); IMMATURE GRAN ABSOLUTE AUTO 0.02 K/mm3 (0.00-0.10); IMMATURE GRAN PERCENT AUTO 0 % (0-1); LYMPHOCYTES ABSOLUTE AUTO 2.26 K/mm3 (0.84-5.20); LYMPHOCYTES PERCENT AUTO 30 % (21-46); MONOCYTES ABSOLUTE AUTO 0.58 K/mm3 (0.16-1.47); MONOCYTES PERCENT AUTO 8 % (4-13); Mean Corpuscular HGB 30.8 pg (26.0-34.0); Mean Corpuscular HGB Conc 33.8 g/dL (31.5-36.5); Mean Corpuscular Volume 91 fL (80-100); Mean Platelet Volume 10.2 fL (9.1-12.4); NEUTROPHILS ABSOLUTE AUTO 4.62 K/mm3 (1.96-9.15); NEUTROPHILS PERCENT AUTO 60 % (41-73); Platelet Count 215 K/mm3 (150-400); RDW Coefficient Variation 13.7 % (11.7-14.2); RDW Standard Deviation 45.6 fL (35.1-46.3); Red Blood Cell Count 4.25 M/mm3 (3.80-5.20); White Blood Cell Count 7.67 K/mm3 (4.00-11.30)
[2023-07-26 00:15] VITALS: BP 165/96
== END 2023-07-26 | disposition home or self-care (01) ==
LOC: ER 20:36
PROVIDERS: Emergency Medicine
DX: K30 Functional dyspepsia (principal); Z88.8 Allergy status to other drugs, medicaments and biological substances; Z79.899 Other long term (current) drug therapy; Z79.82 Long term (current) use of aspirin; I12.9 Hypertensive chronic kidney disease with stage 1 through stage 4 chronic kidney disease, or unspecified chronic kidney disease; E11.22 Type 2 diabetes mellitus with diabetic chronic kidney disease; I25.10 Atherosclerotic heart disease of native coronary artery without angina pectoris; J44.9 Chronic obstructive pulmonary disease, unspecified; E78.5 Hyperlipidemia, unspecified; E78.00 Pure hypercholesterolemia, unspecified; N18.9 Chronic kidney disease, unspecified; Z87.891 Personal history of nicotine dependence
CPT/HCPCS: 71046; 80053; 83690; 84484; 85025; 93005; 93010; 99284-25; A9270

== ENCOUNTER 2023-09-07 08:59 | Emergency (ER) | payer OTHER ==
[~2023-09-07] VITALS: Ht 160 cm; Wt 85.3 kg
[2023-09-07] MEDS ORDERED: Morphine Sulfate 4 MG/1 ML Injection IV ONE (09:20)
[2023-09-07] MEDS ORDERED: Ondansetron HCl 2 MG / ML 2ML Vial IV ONE (09:20)
[2023-09-07 09:32] LABS: BASOPHILS ABSOLUTE AUTO 0.06 K/mm3 (0.00-0.23); BASOPHILS PERCENT AUTO 1 % (0-2); EOSINOPHILS ABSOLUTE AUTO 0.14 K/mm3 (0.00-0.68); EOSINOPHILS PERCENT AUTO 2 % (0-6); Hematocrit 44.5 % (33.0-51.0); Hemoglobin 14.3 g/dL (11.5-16.0); IMMATURE GRAN ABSOLUTE AUTO 0.01 K/mm3 (0.00-0.10); IMMATURE GRAN PERCENT AUTO 0 % (0-1); LYMPHOCYTES ABSOLUTE AUTO 1.87 K/mm3 (0.84-5.20); LYMPHOCYTES PERCENT AUTO 24 % (21-46); MONOCYTES PERCENT AUTO 6 % (4-13); Mean Corpuscular HGB 29.9 pg (26.0-34.0); Mean Corpuscular HGB Conc 32.1 g/dL (31.5-36.5); Mean Corpuscular Volume 93 fL (80-100); Mean Platelet Volume 9.8 fL (9.1-12.4); NEUTROPHILS PERCENT AUTO 67 % (41-73); Platelet Count 190 K/mm3 (150-400); RDW Coefficient Variation 13.3 % (11.7-14.2); RDW Standard Deviation 45.6 fL (35.1-46.3); Red Blood Cell Count 4.78 M/mm3 (3.80-5.20); White Blood Cell Count 7.78 K/mm3 (4.00-11.30)
[2023-09-07 09:51] VITALS: BP 116/71
[2023-09-07 09:55] LABS: Albumin, Blood 3.8 g/dL (3.4-5.0); Albumin/Globulin Ratio 0.9 (0.8-1.8); Bilirubin, Total 0.2 mg/dL (0.1-1.0); Bun/Creatinine Ratio 19.1 (12.0-20.0); Calcium, Blood 10.3 mg/dL (8.5-10.1); Creatinine, Blood 1.99 mg/dL (0.40-1.00); Globulin, Blood 4.1 g/dL (2.2-4.0); Potassium, Blood 5.1 mmol/L (3.5-5.5); Total Protein, Blood 7.9 g/dL (6.4-8.2)
[2023-09-07] MEDS ORDERED: Ketorolac Tromethamine 15mg Vial IV ONE (11:10)
[2023-09-07] MEDS ORDERED: Magnesium Citr296 ML PO (12:12)
== END 2023-09-07 12:22 | disposition home or self-care (01) ==
LOC: ER 08:59
PROVIDERS: Emergency Medicine
DX: R07.89 Other chest pain (principal); Z88.8 Allergy status to other drugs, medicaments and biological substances; Z79.899 Other long term (current) drug therapy; Z79.82 Long term (current) use of aspirin; E11.9 Type 2 diabetes mellitus without complications; J44.9 Chronic obstructive pulmonary disease, unspecified; I12.9 Hypertensive chronic kidney disease with stage 1 through stage 4 chronic kidney disease, or unspecified chronic kidney disease; I25.2 Old myocardial infarction; N18.9 Chronic kidney disease, unspecified; Z87.891 Personal history of nicotine dependence
CPT/HCPCS: 71046; 80053; 83690; 84484; 85025; 93005; 93010; 96374; 96375; 99285-25; J1885; J2270; J2405

== ENCOUNTER 2024-03-08 20:26 | Emergency (ER) | payer OTHER ==
[~2024-03-08] VITALS: Ht 160 cm; Wt 90.7 kg
[~2024-03-08 20:26] MED LIST changes: +ALOGLIPTIN12.5 M1 PO; +BASAGLAR K100 UNIT/1 SC; +HUMALOG KW100 UNIT/1 SC; +Magnesium Citr296 ML PO; +NITR.4SL SL; +PANT40 PO; +STEGLATRO15 MG PO; +TRULICITY1.5 MG/0.1 SC
[2024-03-08 20:50] LABS: BASOPHILS ABSOLUTE AUTO 0.05 K/mm3 (0.00-0.23); BASOPHILS PERCENT AUTO 1 % (0-2); EOSINOPHILS ABSOLUTE AUTO 0.16 K/mm3 (0.00-0.68); EOSINOPHILS PERCENT AUTO 2 % (0-6); Hematocrit 40.7 % (33.0-51.0); Hemoglobin 13.1 g/dL (11.5-16.0); IMMATURE GRAN ABSOLUTE AUTO 0.04 K/mm3 (0.00-0.10); IMMATURE GRAN PERCENT AUTO 0 % (0-1); LYMPHOCYTES ABSOLUTE AUTO 3.39 K/mm3 (0.84-5.20); LYMPHOCYTES PERCENT AUTO 33 % (21-46); MONOCYTES ABSOLUTE AUTO 0.85 K/mm3 (0.16-1.47); MONOCYTES PERCENT AUTO 8 % (4-13); Mean Corpuscular HGB 29.7 pg (26.0-34.0); Mean Corpuscular HGB Conc 32.2 g/dL (31.5-36.5); Mean Corpuscular Volume 92 fL (80-100); Mean Platelet Volume 9.9 fL (9.1-12.4); NEUTROPHILS PERCENT AUTO 56 % (41-73); Platelet Count 199 K/mm3 (150-400); RDW Standard Deviation 47.6 fL (35.1-46.3); Red Blood Cell Count 4.41 M/mm3 (3.80-5.20); White Blood Cell Count 10.19 K/mm3 (4.00-11.30)
[2024-03-08 21:12] LABS: Albumin, Blood 3.8 g/dL (3.4-5.0); Albumin/Globulin Ratio 0.9 (0.8-1.8); Bilirubin, Total 0.3 mg/dL (0.1-1.0); Bun/Creatinine Ratio 21.1 (12.0-20.0); Calcium, Blood 10.2 mg/dL (8.5-10.1); Creatinine, Blood 2.61 mg/dL (0.40-1.00); Globulin, Blood 4.2 g/dL (2.2-4.0); Potassium, Blood 5.5 mmol/L (3.5-5.5)
[2024-03-08] MEDS ORDERED: NS 1,000 ML IV SCH (22:05)
[2024-03-08] MEDS ORDERED: Morphine Sulfate 10 MG/ML 1MLSYR IV ONE (22:25)
[2024-03-08] MEDS ORDERED: Ondansetron HCl 2 MG / ML 2ML Vial IV ONE (22:25)
[2024-03-09 00:11] LABS: Source, Urine Clean Catch
[2024-03-09 00:20] LABS: Bilirubin, Urine Neg (Neg); Blood, Urine 2+ (Neg); Glucose Qualitative, Urine 4+ (Neg); Ketones, Urine Neg (Neg); Leukocyte Esterase, Urine 2+ (Neg); Nitrite, Urine Pos (Neg); Protein, Urine 3+ (Neg); Urobilinogen, Urine NORM (Normal)
[2024-03-09 00:26] LABS: Appearance, Urine Hazy (Clear); Bacteria Many /hpf; Color, Urine Yellow (P-Yellow); Red Blood Cells, Urine 0-2 /hpf (0-2); Squamous Epithelial Cells Mod /hpf (Few)
[2024-03-09] MEDS ORDERED: Promethazine HCl 25 MG Tab PO ONE (00:55)
[2024-03-09] MEDS ORDERED: PROM25 PO (00:57)
[2024-03-09 01:30] VITALS: BP 118/78
[2024-03-19] MEDS ORDERED: METO25ER PO (21:29)
== END 2024-03-09 01:30 | disposition home or self-care (01) ==
LOC: ER 20:26
PROVIDERS: Student in an Organized Health Care Education/Training Program
DX: R10.31 Right lower quadrant pain (principal); R11.0 Nausea; I25.10 Atherosclerotic heart disease of native coronary artery without angina pectoris; I25.2 Old myocardial infarction; I12.9 Hypertensive chronic kidney disease with stage 1 through stage 4 chronic kidney disease, or unspecified chronic kidney disease; E11.22 Type 2 diabetes mellitus with diabetic chronic kidney disease; N18.9 Chronic kidney disease, unspecified; J44.9 Chronic obstructive pulmonary disease, unspecified; E78.5 Hyperlipidemia, unspecified; I77.1 Stricture of artery; J45.909 Unspecified asthma, uncomplicated; K57.30 Diverticulosis of large intestine without perforation or abscess without bleeding; Z95.1 Presence of aortocoronary bypass graft; Z90.49 Acquired absence of other specified parts of digestive tract; Z87.891 Personal history of nicotine dependence; Z88.0 Allergy status to penicillin; Z88.2 Allergy status to sulfonamides; Z88.5 Allergy status to narcotic agent; Z88.8 Allergy status to other drugs, medicaments and biological substances; Z79.4 Long term (current) use of insulin; Z79.85 Long-term (current) use of injectable non-insulin antidiabetic drugs; Z79.899 Other long term (current) drug therapy
CPT/HCPCS: 74176; 80053; 81001; 83690; 85025; 87086; 93005; 93010; 96361; 96374; 96375; 99284-25; A9270; J2270; J2405; J7030

== ENCOUNTER 2024-03-11 15:57 | Emergency (ER) | payer OTHER ==
[~2024-03-11] VITALS: Ht 160 cm; Wt 86.2 kg
[~2024-03-11 15:57] MED LIST changes: +PROM25 PO
[2024-03-11 17:21] LABS: BASOPHILS ABSOLUTE AUTO 0.03 K/mm3 (0.00-0.23); BASOPHILS PERCENT AUTO 0 % (0-2); EOSINOPHILS ABSOLUTE AUTO 0.14 K/mm3 (0.00-0.68); EOSINOPHILS PERCENT AUTO 2 % (0-6); Hematocrit 37.9 % (33.0-51.0); Hemoglobin 12.3 g/dL (11.5-16.0); IMMATURE GRAN ABSOLUTE AUTO 0.04 K/mm3 (0.00-0.10); IMMATURE GRAN PERCENT AUTO 0 % (0-1); LYMPHOCYTES ABSOLUTE AUTO 2.43 K/mm3 (0.84-5.20); LYMPHOCYTES PERCENT AUTO 27 % (21-46); MONOCYTES ABSOLUTE AUTO 0.77 K/mm3 (0.16-1.47); MONOCYTES PERCENT AUTO 9 % (4-13); Mean Corpuscular HGB 29.9 pg (26.0-34.0); Mean Corpuscular HGB Conc 32.5 g/dL (31.5-36.5); Mean Corpuscular Volume 92 fL (80-100); Mean Platelet Volume 9.9 fL (9.1-12.4); NEUTROPHILS ABSOLUTE AUTO 5.59 K/mm3 (1.96-9.15); NEUTROPHILS PERCENT AUTO 62 % (41-73); Platelet Count 167 K/mm3 (150-400); RDW Standard Deviation 47.7 fL (35.1-46.3); Red Blood Cell Count 4.12 M/mm3 (3.80-5.20)
[2024-03-11 17:42] LABS: Albumin, Blood 3.6 g/dL (3.4-5.0); Albumin/Globulin Ratio 0.9 (0.8-1.8); Bilirubin, Total 0.3 mg/dL (0.1-1.0); Calcium, Blood 9.6 mg/dL (8.5-10.1); Creatinine, Blood 2.37 mg/dL (0.40-1.00); Globulin, Blood 3.9 g/dL (2.2-4.0); Potassium, Blood 5.7 mmol/L (3.5-5.5); Total Protein, Blood 7.5 g/dL (6.4-8.2)
[2024-03-11] MEDS ORDERED: NS 1,000 ML IV SCH (17:55)
[2024-03-11 20:30] VITALS: BP 95/67
== END 2024-03-11 20:45 | disposition home or self-care (01) ==
LOC: ER 15:57
PROVIDERS: Emergency Medicine
DX: N17.9 Acute kidney failure, unspecified (principal); I12.9 Hypertensive chronic kidney disease with stage 1 through stage 4 chronic kidney disease, or unspecified chronic kidney disease; N18.9 Chronic kidney disease, unspecified; E11.22 Type 2 diabetes mellitus with diabetic chronic kidney disease; I25.2 Old myocardial infarction; E78.5 Hyperlipidemia, unspecified; J44.89 Other specified chronic obstructive pulmonary disease; Z87.891 Personal history of nicotine dependence
CPT/HCPCS: 70450; 80053; 85025; 96360; 99284-25; J7030

== ENCOUNTER 2024-03-19 15:20 | Inpatient (IN) | payer OTHER ==
[~2024-03-19] VITALS: Ht 160 cm; Wt 87.5 kg
[2024-03-19 16:02] LABS: BASOPHILS ABSOLUTE AUTO 0.04 K/mm3 (0.00-0.23); BASOPHILS PERCENT AUTO 0 % (0-2); EOSINOPHILS ABSOLUTE AUTO 0.19 K/mm3 (0.00-0.68); EOSINOPHILS PERCENT AUTO 2 % (0-6); Hematocrit 37.8 % (33.0-51.0); Hemoglobin 12.3 g/dL (11.5-16.0); IMMATURE GRAN ABSOLUTE AUTO 0.03 K/mm3 (0.00-0.10); IMMATURE GRAN PERCENT AUTO 0 % (0-1); LYMPHOCYTES ABSOLUTE AUTO 2.44 K/mm3 (0.84-5.20); LYMPHOCYTES PERCENT AUTO 23 % (21-46); MONOCYTES ABSOLUTE AUTO 0.65 K/mm3 (0.16-1.47); MONOCYTES PERCENT AUTO 6 % (4-13); Mean Corpuscular HGB 29.9 pg (26.0-34.0); Mean Corpuscular HGB Conc 32.5 g/dL (31.5-36.5); Mean Corpuscular Volume 92 fL (80-100); Mean Platelet Volume 9.9 fL (9.1-12.4); NEUTROPHILS ABSOLUTE AUTO 7.32 K/mm3 (1.96-9.15); NEUTROPHILS PERCENT AUTO 69 % (41-73); Platelet Count 200 K/mm3 (150-400); RDW Coefficient Variation 13.8 % (11.7-14.2); Red Blood Cell Count 4.11 M/mm3 (3.80-5.20); White Blood Cell Count 10.67 K/mm3 (4.00-11.30)
[2024-03-19] MEDS ORDERED: NS 1,000 ML IV SCH ×2 (16:15→21:00)
[2024-03-19 16:19] LABS: Albumin, Blood 3.6 g/dL (3.4-5.0); Albumin/Globulin Ratio 0.9 (0.8-1.8); Bilirubin, Total 0.2 mg/dL (0.1-1.0); Bun/Creatinine Ratio 12.2 (12.0-20.0); Calcium, Blood 9.2 mg/dL (8.5-10.1); Creatinine, Blood 3.76 mg/dL (0.40-1.00); Globulin, Blood 3.8 g/dL (2.2-4.0); Magnesium, Blood 1.8 mg/dL (1.6-2.4); Potassium, Blood 5.4 mmol/L (3.5-5.5); Total Protein, Blood 7.4 g/dL (6.4-8.2)
[2024-03-19] MEDS ORDERED: Meclizine HCl 25 MG Tab PO ONE (16:25)
[2024-03-19] MEDS ORDERED: Adenosine 3 MG/ML 2 ML Vial IV ONE (20:08)
[2024-03-19] MEDS ORDERED: Ondansetron HCl 2 MG / ML 2ML Vial IV ONE (20:20)
[2024-03-19] MEDS ORDERED: Insulin Human Lispro 100 Units/ML 3ML Syringe SC SCH (21:00)
[2024-03-19] MEDS ORDERED: CYCL10 PO (21:24)
[2024-03-19] MEDS ORDERED: THERA-D2000 UNIT PO (21:25)
[2024-03-19] MEDS ORDERED: Crestor40 MG PO (21:27)
[2024-03-19] MEDS ORDERED: METO50ER PO (21:29)
[2024-03-19 21:40] VITALS: BP 98/62
[2024-03-19] MEDS ORDERED: Nitroglycerin 0.4 MG SUBL SL PRN (22:05)
[2024-03-19] MEDS ORDERED: Albuterol HFA200 ACT/6.7 GM INH INH PRN (22:15)
[2024-03-19 22:40] LABS: Bun/Creatinine Ratio 12.6 (12.0-20.0); Calcium, Blood 8.8 mg/dL (8.5-10.1); Creatinine, Blood 3.26 mg/dL (0.40-1.00); Potassium, Blood 4.9 mmol/L (3.5-5.5)
[2024-03-19] MEDS ORDERED: Melatonin 5 MG Tablet PO PRN (23:05)
[2024-03-19] MEDS ORDERED: Miconazole Nitrate 2% 85 GM PWD TOP SCH (23:15)
[2024-03-20] MEDS ORDERED: Ondansetron HCl 2 MG / ML 2ML Vial IV PRN (03:40)
[2024-03-20 04:01] VITALS: BP 94/64
[2024-03-20 05:58] LABS: BASOPHILS ABSOLUTE AUTO 0.03 K/mm3 (0.00-0.23); BASOPHILS PERCENT AUTO 0 % (0-2); EOSINOPHILS ABSOLUTE AUTO 0.16 K/mm3 (0.00-0.68); EOSINOPHILS PERCENT AUTO 2 % (0-6); Hematocrit 36.3 % (33.0-51.0); Hemoglobin 11.7 g/dL (11.5-16.0); IMMATURE GRAN ABSOLUTE AUTO 0.02 K/mm3 (0.00-0.10); IMMATURE GRAN PERCENT AUTO 0 % (0-1); LYMPHOCYTES ABSOLUTE AUTO 2.53 K/mm3 (0.84-5.20); LYMPHOCYTES PERCENT AUTO 29 % (21-46); MONOCYTES ABSOLUTE AUTO 0.65 K/mm3 (0.16-1.47); MONOCYTES PERCENT AUTO 8 % (4-13); Mean Corpuscular HGB 30.2 pg (26.0-34.0); Mean Corpuscular HGB Conc 32.2 g/dL (31.5-36.5); Mean Corpuscular Volume 94 fL (80-100); Mean Platelet Volume 9.7 fL (9.1-12.4); NEUTROPHILS ABSOLUTE AUTO 5.27 K/mm3 (1.96-9.15); NEUTROPHILS PERCENT AUTO 61 % (41-73); Platelet Count 165 K/mm3 (150-400); RDW Coefficient Variation 13.8 % (11.7-14.2); RDW Standard Deviation 47.7 fL (35.1-46.3); Red Blood Cell Count 3.88 M/mm3 (3.80-5.20); White Blood Cell Count 8.66 K/mm3 (4.00-11.30)
[2024-03-20 07:00] LABS: Bun/Creatinine Ratio 13.2 (12.0-20.0); Calcium, Blood 8.9 mg/dL (8.5-10.1); Creatinine, Blood 2.95 mg/dL (0.40-1.00); Potassium, Blood 5.4 mmol/L (3.5-5.5)
[2024-03-20 07:40] VITALS: BP 111/72
[2024-03-20] MEDS ORDERED: Metoprolol Succinate 25 MG TABCR PO SCH (09:00)
[2024-03-20] MEDS ORDERED: ERTUGLIFLOZIN 15 MG PO SCH (09:00)
[2024-03-20] MEDS ORDERED: Pantoprazole Sodium 40 MG Tab PO SCH (09:00)
[2024-03-20] MEDS ORDERED: Cholecalciferol 1000 Unit Tablet (=25MCG) PO SCH (09:00)
[2024-03-20] MEDS ORDERED: Sodium Bicarb 8.4% Inj 75 MEQ in Sodium Chloride 0.45% 1,000 ML IV SCH (12:00)
--- NOTE | 2024-03-20 18:05 | NUR ---
END OF SHIFT SUMMARY: A&Ox4. PLEASANT AND COOPERATIVE WITH CARE. CALLS APPROPRIATELY AND IS ABLE TO ADVOCATE NEEDS EFFECTIVELY. AMBULATES SBA c FWW. CONTINENT/CONTINENT. MEDS WHOLE c FLUIDS. NO COMPLAINTS OF PAIN OR DISCOMFORT. NEPHROLOGY CONSULT PLACED PER DR CHEN; DR WESTBROOK TO BEDSIDE FOR CONSULT; ORDERS FOR BICARB GTTS AND RENAL ULTRASOUND WNL. PATIENT LATER REPORTED THAT DR. Coombs IS HER NEPHROLOGY. DR. Coombs TO BEDSIDE, WELL, TO CHECK IN. NO NEW ORDERS OF WRITING. BED IN LOWEST POSITION. CALL LIGHT WITHIN REACH. ALL NEEDS MET. REPORT TO ONCOMING RN.
[2024-03-20 18:51] VITALS: BP 111/73
--- NOTE | 2024-03-20 19:52 | NUR ---
PATIENT CALLED WITH C/O CP 03/23 AFTER SNEEZING NINE TIMES IN A ROW. ADMINISTERED NITRO AND OBTAINED EKG: SVT IN 140s. SECOND DOSE NITRO ADMINISTERED AND ON-CALL PROVIDER CALLED. THIRD DOSE ADMINISTERED. FLOOR HELPER CALLED AND ADENOSINE ADMINISTERED. PT CONVERTED TO SINUS.
[2024-03-20 20:06] LABS: Bun/Creatinine Ratio 13.4 (12.0-20.0); Calcium, Blood 9.2 mg/dL (8.5-10.1); Creatinine, Blood 2.47 mg/dL (0.40-1.00); Magnesium, Blood 1.7 mg/dL (1.6-2.4); Potassium, Blood 5.2 mmol/L (3.5-5.5)
[2024-03-20 20:28] LABS: Source, Urine Clean Catch
[2024-03-20 20:33] LABS: Appearance, Urine Clear (Clear); Bilirubin, Urine Neg (Neg); Blood, Urine Neg (Neg); Glucose Qualitative, Urine 4+ (Neg); Ketones, Urine Neg (Neg); Leukocyte Esterase, Urine Neg (Neg); Nitrite, Urine Neg (Neg); Protein, Urine 1+ (Neg); Urobilinogen, Urine NORM (Normal)
[2024-03-20 20:43] VITALS: BP 119/104
[2024-03-20] MEDS ORDERED: LURASIDONE 120 MG PO SCH (21:00)
[2024-03-20] MEDS ORDERED: Sodium Zirconium Cyclosilicate 10 GM Packet PO SCH (21:00)
[2024-03-20 21:04] LABS: Color, Urine Pale Yellow (P-Yellow)
[2024-03-20 22:05] LABS: SARS-Cov-2 (COVID-19) PCR, MMC NEGATIVE (NEGATIVE)
[2024-03-20 23:41] VITALS: BP 128/77
--- NOTE | 2024-03-21 03:22 | NUR ---
SECTIONIZER SUMMARY ON SHIFT COMMENCE, WAS INVOLVED IN RAPID RESPONSE FOR CARDIC ISSUES (SEE DOCUMENTATION). PLACED ON MED TELE AFTER MEDS GIVEN AND HAS BEEN SINUS RHYTHM SINCE ON THIS SHIFT, BP WAS ELEVATED, BUT LATER TRENDED DOWN TO WNL - SEE VITAL SIGN DOCS. ALERT AND ORIENTED X 4. IVF INFUSING AT 100 ML/HR. HAS BEEN RESTING QUIETLY WITH FEW INTERRUPTIONS. UP AD IRISH WITH OBS. ABLE TO REPOSITION SELF IN BED WITHOUT ASSIST. NO C/O CHEST PAIN OR S/S ACUTE PHYSICAL DISTRESS OF THIS WRITING. CALL LIGHTIN REACH, RAILS UP X 2 AND BED IN LOW POSITION FOR SAFETY. WILL CONT TO MONITOR
[2024-03-21 04:39] VITALS: BP 139/80
[2024-03-21 06:42] LABS: Albumin, Blood 3.1 g/dL (3.4-5.0); Anion Gap 13 mmol/L (3-11); Blood Urea Nitrogen 33 mg/dL (8-24); Bun/Creatinine Ratio 15.6 (12.0-20.0); CO2, Blood 22 mmol/L (21-32); Calcium, Blood 9.7 mg/dL (8.5-10.1); Chloride, Blood 113 mmol/L (98-108); Creatinine, Blood 2.12 mg/dL (0.40-1.00); Glomerular Filtration Rate 26 (60-); Glucose, Blood 154 mg/dL (70-99); Magnesium, Blood 1.5 mg/dL (1.6-2.4); Phosphorus, Blood 2.7 mg/dL (2.5-4.9); Potassium, Blood 4.4 mmol/L (3.5-5.5); Sodium, Blood 144 mmol/L (136-145)
[2024-03-21 07:03] LABS: BASOPHILS ABSOLUTE AUTO 0.04 K/mm3 (0.00-0.23); BASOPHILS PERCENT AUTO 1 % (0-2); EOSINOPHILS ABSOLUTE AUTO 0.16 K/mm3 (0.00-0.68); EOSINOPHILS PERCENT AUTO 2 % (0-6); Hematocrit 34.3 % (33.0-51.0); Hemoglobin 11.3 g/dL (11.5-16.0); IMMATURE GRAN ABSOLUTE AUTO 0.03 K/mm3 (0.00-0.10); IMMATURE GRAN PERCENT AUTO 0 % (0-1); LYMPHOCYTES ABSOLUTE AUTO 1.73 K/mm3 (0.84-5.20); LYMPHOCYTES PERCENT AUTO 24 % (21-46); MONOCYTES ABSOLUTE AUTO 0.55 K/mm3 (0.16-1.47); MONOCYTES PERCENT AUTO 8 % (4-13); Mean Corpuscular HGB 29.7 pg (26.0-34.0); Mean Corpuscular HGB Conc 32.9 g/dL (31.5-36.5); Mean Corpuscular Volume 90 fL (80-100); Mean Platelet Volume 9.8 fL (9.1-12.4); NEUTROPHILS ABSOLUTE AUTO 4.81 K/mm3 (1.96-9.15); NEUTROPHILS PERCENT AUTO 66 % (41-73); Platelet Count 160 K/mm3 (150-400); RDW Coefficient Variation 13.4 % (11.7-14.2); RDW Standard Deviation 44.1 fL (35.1-46.3); Red Blood Cell Count 3.81 M/mm3 (3.80-5.20); White Blood Cell Count 7.32 K/mm3 (4.00-11.30)
[2024-03-21 07:43] VITALS: BP 146/88
--- NOTE | 2024-03-21 10:05 | NUR ---
PT CALLED WITH C/O CP 5/10. NITRO ADMINISTERED. PER TELE: SINUS IN 90s. BP 115/86 HR 90. CP RELIEVED WITH ONE DOSE NITRO.
[2024-03-21 10:20] VITALS: BP 116/69
[2024-03-21] MEDS ORDERED: Magnesium Sulf 2 GM/Water 50ML 50 ML IV ONE (12:35)
--- NOTE | 2024-03-21 13:24 | NUR ---
PER DR CHEN: STOP FLUIDS AND ADMINISTER MAGNESIUM.
[2024-03-21 16:06] VITALS: BP 143/85
--- NOTE | 2024-03-21 16:07 | NUR ---
PATIENT CALLED WITH C/O LEFT-SIDED CHEST PAIN 03/23. PRN NITRO ADMINISTERED. BP 140s/80s. CALL TO METAL HARDENER: SINUS IN 80s WITHOUT ANY RECENT CHANGE IN RHYTHM.
[2024-03-21] MEDS ORDERED: Insulin Glargine-Yfgn 100 Unit/mL 3 ML SYR SC SCH ×2 (17:00→21:00)
--- NOTE | 2024-03-21 18:20 | NUR ---
END OF SHIFT SUMMARY: A&Ox4. PLEASANT AND COOPERATIVE WITH CARE. CALLS APPROPRIATELY AND IS ABLE TO ADVOCATE NEEDS EFFECTIVELY. CONTINENT AND AMBULATES INDEPENDENTLY TO BATHROOM. C / O NO BM SINCE HOSPITALIZATION; OBTAINED ORDER FOR STOOL SOFTENER. TELE SINUS ~80s. TWO EPISODES OF ANGINA TODAY RELIEVED WITH NITRO TAB. ORDERS STRESS TEST AND CARDIOLOGY CONSULT TOMORROW. PT TO BE NPO AFTER MIDNIGHT; NO COFFEE OR TEA (EVEN IF DECAF), CHOCOLATE OR OTHER STIMULANT. NO NITRO TO BE ADMINISTERED; NOTIFY PROVIDER IF THIS IS REQUIRED PRIOR TO STRESS TEST. INSULIN CHANGES MADE IN ADDITION TO DISCONTINUATION OF BICARB GTTS. DR ROSARIO IN TO SEE PATIENT AND MADE CHANGES TO MEDS AND LABS. BED IN LOWEST POSITION. CALL LIGHT WITHIN REACH. ALL NEEDS MET. REPORT TO ONCOMING RN.
[2024-03-21] MEDS ORDERED: Sennosides 8.6 MG Tab PO SCH (21:00)
[2024-03-21 21:50] VITALS: BP 136/86
--- NOTE | 2024-03-22 05:03 | NUR ---
AUDIO DIRECTOR SUMMARY VSS. ALERT AND ORIENTED X 4. DENIED CHEST PAIN OR SOB WHEN ASKED. UP AD IRISH TO BATHROOM NEEDED. MED TELE SINUS RHYTHM IN THE 90'S. HAS BEEN RESTING QUIETLY WITH OCCASIONAL INTERRUPTIONS. ABLE TO REPOSITION SELF IN BED WITHOUT ASSIST. CALL LIGHT IN REACH, RAILS UP X 2 ND BED IN LOW POSITION FOR SAFETY. WILL CONT TO MONITOR. NPO FOR STRESS TEST LATER TODAY.
[2024-03-22 05:12] VITALS: BP 149/81
[2024-03-22 05:12] LABS: BASOPHILS ABSOLUTE AUTO 0.04 K/mm3 (0.00-0.23); BASOPHILS PERCENT AUTO 1 % (0-2); EOSINOPHILS ABSOLUTE AUTO 0.16 K/mm3 (0.00-0.68); EOSINOPHILS PERCENT AUTO 2 % (0-6); Hematocrit 37.9 % (33.0-51.0); Hemoglobin 12.6 g/dL (11.5-16.0); IMMATURE GRAN ABSOLUTE AUTO 0.03 K/mm3 (0.00-0.10); IMMATURE GRAN PERCENT AUTO 0 % (0-1); LYMPHOCYTES ABSOLUTE AUTO 1.79 K/mm3 (0.84-5.20); LYMPHOCYTES PERCENT AUTO 23 % (21-46); MONOCYTES ABSOLUTE AUTO 0.64 K/mm3 (0.16-1.47); MONOCYTES PERCENT AUTO 8 % (4-13); Mean Corpuscular HGB 29.7 pg (26.0-34.0); Mean Corpuscular HGB Conc 33.2 g/dL (31.5-36.5); Mean Corpuscular Volume 89 fL (80-100); Mean Platelet Volume 9.9 fL (9.1-12.4); NEUTROPHILS ABSOLUTE AUTO 5.12 K/mm3 (1.96-9.15); NEUTROPHILS PERCENT AUTO 66 % (41-73); Platelet Count 161 K/mm3 (150-400); RDW Coefficient Variation 13.3 % (11.7-14.2); RDW Standard Deviation 43.2 fL (35.1-46.3); Red Blood Cell Count 4.24 M/mm3 (3.80-5.20); White Blood Cell Count 7.78 K/mm3 (4.00-11.30)
[2024-03-22 05:40] LABS: Albumin, Blood 3.5 g/dL (3.4-5.0); Anion Gap 15 mmol/L (3-11); Blood Urea Nitrogen 33 mg/dL (8-24); CO2, Blood 21 mmol/L (21-32); Calcium, Blood 10.5 mg/dL (8.5-10.1); Chloride, Blood 111 mmol/L (98-108); Creatinine, Blood 2.06 mg/dL (0.40-1.00); Glomerular Filtration Rate 27 (60-); Glucose, Blood 130 mg/dL (70-99); Magnesium, Blood 2.3 mg/dL (1.6-2.4); Phosphorus, Blood 3.8 mg/dL (2.5-4.9); Potassium, Blood 4.8 mmol/L (3.5-5.5); Sodium, Blood 142 mmol/L (136-145)
[2024-03-22 07:27] VITALS: BP 123/75
--- NOTE | 2024-03-22 07:30 | NUR ---
INITIAL ASSESSMENT: Patient is awake sitting up in bed watching TV, she is alert and oriented x4. She denies chest pain at this time. She states she has CP with exertion and stress. HRR. LS CTA, biox is high 90s on RA BT+. PPP. VSS. Patient has a stress test ordered this AM, she voices frusteration regarding lack of communication-she was not aware she was having a stress test. Dr. Curtis is in the room at this time talking with patient regarding the type of chest pain she is having and what exacerbates it. Previous stress test in november of this year and ECHO reviewed. Orders to cancel the stress test and medication changes made at this time. He discussed with the patient she will need to return if her pain returns. She is cleared from a cardiology. She denies other needs at this time. Call light in reach.
[2024-03-22] MEDS ORDERED: Rosuvastatin Calcium 10 MG Tab PO SCH (09:00)
[2024-03-22] MEDS ORDERED: Aspirin 81 MG Chew PO SCH (09:00)
[2024-03-22] MEDS ORDERED: Isosorbide Mononitrate 30 MG TABCR PO SCH (09:00)
[2024-03-22] MEDS ORDERED: Polyethylene Glycol 3350 17 gm PO SCH (09:00)
[2024-03-22] MEDS ORDERED: Metoprolol Succinate 50 MG TABCR PO SCH (09:00)
[2024-03-22 09:35] VITALS: BP 146/92
[2024-03-22] MEDS ORDERED: ASPI81CH PO (10:52)
[2024-03-22] MEDS ORDERED: Isosorbide Mono30 MG PO (10:53)
--- NOTE | 2024-03-22 12:02 | NUR ---
Discharge: Patient and verbalize understanding of discharge instructions and new medications. Marilee patch was placed. Patient to home with via
== END 2024-03-22 11:47 | disposition home or self-care (01) | DRG 683 ==
LOC: ER 15:20 → ERHOLD 15:21 → MEDS 15:21
PROVIDERS: Family Medicine; Hospitalist; Internal Medicine; Internal Medicine Nephrology; Physician Assistant; ADMIT Internal Medicine
DX: N17.9 Acute kidney failure, unspecified (principal); E87.0 Hyperosmolality and hypernatremia; E87.20 Acidosis, unspecified; I47.10 Supraventricular tachycardia, unspecified; E11.22 Type 2 diabetes mellitus with diabetic chronic kidney disease; I25.10 Atherosclerotic heart disease of native coronary artery without angina pectoris; I12.9 Hypertensive chronic kidney disease with stage 1 through stage 4 chronic kidney disease, or unspecified chronic kidney disease; J44.9 Chronic obstructive pulmonary disease, unspecified; E11.51 Type 2 diabetes mellitus with diabetic peripheral angiopathy without gangrene; E86.9 Volume depletion, unspecified; E87.5 Hyperkalemia; D63.1 Anemia in chronic kidney disease; K76.0 Fatty (change of) liver, not elsewhere classified; E78.5 Hyperlipidemia, unspecified; E86.0 Dehydration; R42 Dizziness and giddiness; J45.909 Unspecified asthma, uncomplicated; N18.4 Chronic kidney disease, stage 4 (severe); I95.9 Hypotension, unspecified; E11.65 Type 2 diabetes mellitus with hyperglycemia; R55 Syncope and collapse; E83.42 Hypomagnesemia; I48.0 Paroxysmal atrial fibrillation; Z90.710 Acquired absence of both cervix and uterus; Z98.51 Tubal ligation status; Z79.4 Long term (current) use of insulin; Z95.1 Presence of aortocoronary bypass graft; Z79.899 Other long term (current) drug therapy; Z79.51 Long term (current) use of inhaled steroids; Z88.8 Allergy status to other drugs, medicaments and biological substances; Z88.0 Allergy status to penicillin; Z88.2 Allergy status to sulfonamides; Z88.5 Allergy status to narcotic agent; Z95.2 Presence of prosthetic heart valve; Z87.891 Personal history of nicotine dependence
CPT/HCPCS: 36415; 70450; 76770; 80048; 80053; 80069; 82306; 82947; 83036; 83735; 84100; 84484; 85025; 93005; 93010; 93246; 94760; 96361; 96374; 96375; 99285-25; A9270; G0378; J0153; J1815; J2405; J3475; J7030; U0002

== ENCOUNTER 2024-04-11 16:22 | Emergency (ER) | payer OTHER ==
[~2024-04-11] VITALS: Ht 160 cm; Wt 70.3 kg
[~2024-04-11 16:22] MED LIST changes: +Crestor40 MG PO; +Isosorbide Mono30 MG PO; +METO50ER PO; +THERA-D2000 UNIT PO
[2024-04-11 16:50] LABS: BASOPHILS ABSOLUTE AUTO 0.04 K/mm3 (0.00-0.23); BASOPHILS PERCENT AUTO 1 % (0-2); EOSINOPHILS ABSOLUTE AUTO 0.31 K/mm3 (0.00-0.68); EOSINOPHILS PERCENT AUTO 4 % (0-6); Hematocrit 40.3 % (33.0-51.0); Hemoglobin 13.6 g/dL (11.5-16.0); IMMATURE GRAN ABSOLUTE AUTO 0.02 K/mm3 (0.00-0.10); IMMATURE GRAN PERCENT AUTO 0 % (0-1); LYMPHOCYTES ABSOLUTE AUTO 2.17 K/mm3 (0.84-5.20); LYMPHOCYTES PERCENT AUTO 26 % (21-46); MONOCYTES ABSOLUTE AUTO 0.57 K/mm3 (0.16-1.47); MONOCYTES PERCENT AUTO 7 % (4-13); Mean Corpuscular HGB 30.2 pg (26.0-34.0); Mean Corpuscular HGB Conc 33.7 g/dL (31.5-36.5); Mean Corpuscular Volume 90 fL (80-100); Mean Platelet Volume 10.1 fL (9.1-12.4); NEUTROPHILS ABSOLUTE AUTO 5.23 K/mm3 (1.96-9.15); NEUTROPHILS PERCENT AUTO 63 % (41-73); Platelet Count 187 K/mm3 (150-400); RDW Coefficient Variation 13.9 % (11.7-14.2); White Blood Cell Count 8.34 K/mm3 (4.00-11.30)
[2024-04-11] MEDS ORDERED: Morphine Sulfate 4 MG/1 ML Injection IV ONE (17:05)
[2024-04-11] MEDS ORDERED: Ondansetron HCl 2 MG / ML 2ML Vial IV ONE (17:05)
[2024-04-11 17:11] LABS: Bilirubin, Total 0.3 mg/dL (0.1-1.0); Bun/Creatinine Ratio 21.6 (12.0-20.0); Calcium, Blood 10.1 mg/dL (8.5-10.1); Creatinine, Blood 1.99 mg/dL (0.40-1.00); Globulin, Blood 4.1 g/dL (2.2-4.0); Potassium, Blood 4.8 mmol/L (3.5-5.5); Total Protein, Blood 8.1 g/dL (6.4-8.2)
[2024-04-11 19:15] VITALS: BP 116/86
[2024-04-11] MEDS ORDERED: Mag Hydrox/AL Hydrox/Simeth 30 ML UDC PO ONE (19:15)
[2024-04-11] MEDS ORDERED: Atropine/Scopalam/Hyoscam/PB 5 ML UDC PO ONE (19:15)
[2024-04-11] MEDS ORDERED: Lidocaine 2% Viscous Soln 15 ML UDC PO ONE (19:15)
== END 2024-04-11 19:26 | disposition home or self-care (01) ==
LOC: ER 16:22
PROVIDERS: Emergency Medicine
DX: K21.9 Gastro-esophageal reflux disease without esophagitis (principal); E11.22 Type 2 diabetes mellitus with diabetic chronic kidney disease; N18.4 Chronic kidney disease, stage 4 (severe); J44.89 Other specified chronic obstructive pulmonary disease; E78.5 Hyperlipidemia, unspecified; I25.2 Old myocardial infarction; Z87.891 Personal history of nicotine dependence; Z79.82 Long term (current) use of aspirin; Z79.4 Long term (current) use of insulin; Z79.899 Other long term (current) drug therapy; Z88.0 Allergy status to penicillin; Z88.2 Allergy status to sulfonamides; Z88.5 Allergy status to narcotic agent; Z88.8 Allergy status to other drugs, medicaments and biological substances
CPT/HCPCS: 71046; 80053; 84484; 85025; 93005; 93010; 96374; 96375; 99285-25; A9270; J2270; J2405

== ENCOUNTER → 2024-05-13 | Outpatient (CLI) | payer OTHER ==
[~2024-05-13] MED LIST changes: +ALEVAZOL56.7 G1 TOP; +Amlodipine Bes2.5 MG PO; +BISA5EC PO; +CLOP75 PO; +DOXE10 PO; +ESZO1 PO; +FAMO10 PO; +INSULANI; +NOVOLOG FL100 UNIT/3; +TIOT18 INH; +ZYRTEC10 M2 PO
[2024-05-13 11:49] LABS: Source, Urine Clean Catch
[2024-05-13 13:20] LABS: Appearance, Urine Clear (Clear); Bilirubin, Urine Neg (Neg); Blood, Urine Neg (Neg); Color, Urine Yellow (P-Yellow); Glucose Qualitative, Urine 3+ (Normal); Ketones, Urine Neg (Neg); Leukocyte Esterase, Urine Neg (Neg); Nitrite, Urine Neg (Neg); Protein, Urine 1+ (Neg); Urobilinogen, Urine NORM (Normal)
[2024-05-13 13:29] LABS: Albumin, Blood 3.7 g/dL (3.4-5.0); Anion Gap 16 mmol/L (6-16); Blood Urea Nitrogen 33 mg/dL (8-24); Bun/Creatinine Ratio 16.9 (12.0-20.0); CO2, Blood 26 mmol/L (21-32); Chloride, Blood 104 mmol/L (98-108); Creatinine, Blood 1.95 mg/dL (0.40-1.00); Glomerular Filtration Rate 29 (60-); Glucose, Blood 203 mg/dL (70-99); Phosphorus, Blood 3.5 mg/dL (2.5-4.9); Potassium, Blood 5.1 mmol/L (3.5-5.5); Sodium, Blood 141 mmol/L (136-145)
[2024-05-13 18:55] LABS: Creatinine, Urine Random 56.7 mg/dL (27.00-270.00); Protein, Urine Random 62.5 mg/dL (0.0-11.9); Protein/Creat Ratio, Ur Random 1.1
[2024-05-16 20:34] LABS: ALBUMIN 4.34 g/dL (3.75-5.01); ALPHA 1 GLOBULIN 0.33 g/dL (0.19-0.46); ALPHA 2 GLOBULIN 0.81 g/dL (0.48-1.05); GAMMA 0.92 g/dL (0.62-1.51); IMMUNOFIXATION IFE Done; TOTAL PROTEIN, SERUM 7.3 g/dL (6.3-8.2)
== END | disposition home or self-care (01) ==
LOC: LAB SHORT 11:46 → LAB 11:46
PROVIDERS: Hospitalist
DX: E11.9 Type 2 diabetes mellitus without complications (principal); N18.32 Chronic kidney disease, stage 3b
CPT/HCPCS: 36415; 80069; 82570; 83970; 84155; 84156; 84165; 86334

== ENCOUNTER 2024-07-02 06:55 | Day surgery (SDC) | payer OTHER ==
[~2024-07-02] VITALS: Ht 160 cm; Wt 89.8 kg
[2024-07-02] VITALS (7 sets, daily range): BP systolic 137–168; BP diastolic 57–136
[~2024-07-02 06:55] MED LIST changes: +ALOGLIPTIN12.5 M7 PO; +CIPR500 PO; -Crestor40 MG PO; +DULCOLAX PO; +METR500 PO; -NOVOLOG FL100 UNIT/3; +NOVOLOG FL100 UNIT/3 SC; +PREG100 PO; -PREG150 PO; +ROSUVASTATIN CA20 MG PO; +VISBIOME 112.51 EACH PO
[2024-07-02] MEDS ORDERED: BANOPHEN50 M1 PO (07:55)
[2024-07-02] MEDS ORDERED: Heparin Sodium 1000 Units/ML 10ML MDV ONE (08:13)
[2024-07-02] MEDS ORDERED: Verapamil HCL 2.5 MG/ML 2ML Injection ONE (08:13)
[2024-07-02] MEDS ORDERED: Nitroglycerin 2 MG/20 ML BTL ONE (08:14)
[2024-07-02] MEDS ORDERED: NS 1,000 ML IV ONE ×2 (08:14→08:27)
[2024-07-02] MEDS ORDERED: FentaNYL Citrate 50 MCG/ML 2 ML Injection ONE (08:27)
[2024-07-02] MEDS ORDERED: Famotidine 10 MG/ML 2ML Vial ONE (08:31)
[2024-07-02] MEDS ORDERED: Hydrocortisone Sod Succinate 100 MG Vial ONE (08:31)
[2024-07-02] MEDS ORDERED: DiphenhydrAMINE HCl 50 MG/ML 1ML Vial ONE (08:31)
[2024-07-02] MEDS ORDERED: Ondansetron HCl 2 MG / ML 2ML Vial ONE (08:49)
--- NOTE | 2024-07-02 09:33 | NUR ---
PT BACK FROM RECOVERY ROOM AT 0925 S/P RLE PERIPHERAL ANGIOGRAM, ACCESS TO RIGHT PT ONLY. DRSG C/D/I. FAINT 1+ PULSE TO RIGHT DP, UNABLE TO ASSESS RIGHT PT PULSE D/T DRSG. PT AWAKE AND ALERT. PT C/O NAUSEA, PER REPORT PT HAD AN ALLERGIC REACTION DURING PROCEDURE. BENADRYL/PEPCID/SOLUCORTEF GIVEN. PT SINUS TACH W RATE 110. BP STABLE, SLIGHTLY HTN. SATS 93% ON RA. LUNGS CLEAR. PT DENIES C/O SOB OR PAIN. PT CALM AND DOES NOT APPEAR TO BE IN ACUTE DISTRESS.
--- NOTE | 2024-07-02 10:00 | NUR ---
PATIENT CONVERSING APPROPRIATELY NORMAL. PATIENT TOLERATING PO INTAKE WELL. VSS ON RA. PULSES PRESENT IN BOTH FEET.
--- NOTE | 2024-07-02 11:00 | NUR ---
PATIENT DISCHARGED HOME AT THIS TIME. PIV REMOVED WITHOUT DIFFICULTY. PATIENT DISCHARGE INSTRUCTIONS AND BELONGINGS LEFT WITH PATIENT. PATIENT WHEELED TO HOSPITAL ENTRANCE AND DAUGHTER ABLE TO PROVIDE TRANSPORTATION HOME
[2024-07-11] MEDS ORDERED: CYCL10 PO ×2 (23:45)
[2024-07-11] MEDS ORDERED: OZEMPIC1 MG/0.72 SC ×2 (23:45)
[2024-07-11] MEDS ORDERED: STEGLATRO15 MG PO ×2 (23:54)
[2024-07-12] MEDS ORDERED: MIRALAX17 GM PO ×2 (00:04)
[2024-07-12] MEDS ORDERED: ALBU90OI INH ×2 (00:07)
== END 2024-07-02 10:57 | disposition home or self-care (01) ==
LOC: MHTC 06:55
DX: E11.51 Type 2 diabetes mellitus with diabetic peripheral angiopathy without gangrene (principal); I70.201 Unspecified atherosclerosis of native arteries of extremities, right leg; D75.829 Heparin-induced thrombocytopenia, unspecified; I25.10 Atherosclerotic heart disease of native coronary artery without angina pectoris; E78.5 Hyperlipidemia, unspecified; J44.9 Chronic obstructive pulmonary disease, unspecified; I12.9 Hypertensive chronic kidney disease with stage 1 through stage 4 chronic kidney disease, or unspecified chronic kidney disease; E11.22 Type 2 diabetes mellitus with diabetic chronic kidney disease; N18.9 Chronic kidney disease, unspecified; Z95.1 Presence of aortocoronary bypass graft; Z88.0 Allergy status to penicillin; Z88.1 Allergy status to other antibiotic agents; Z88.2 Allergy status to sulfonamides; Z88.6 Allergy status to analgesic agent; Z88.8 Allergy status to other drugs, medicaments and biological substances; Z79.82 Long term (current) use of aspirin; Z79.899 Other long term (current) drug therapy
CPT/HCPCS: 37224; 75710; 75774; 76937; 99152; C1725; C1769; C1887; C1894; J1200; J1644; J1720; J2405; J3010; J7030; Q9967

== ENCOUNTER 2024-07-11 17:06 | Observation (INO) | payer OTHER ==
[~2024-07-11] VITALS: Ht 160 cm; Wt 89.8 kg
[~2024-07-11 17:06] MED LIST changes: +BANOPHEN50 M1 PO
[2024-07-11 17:39] LABS: BASOPHILS ABSOLUTE AUTO 0.04 K/mm3 (0.00-0.23); BASOPHILS PERCENT AUTO 1 % (0-2); EOSINOPHILS ABSOLUTE AUTO 0.14 K/mm3 (0.00-0.68); EOSINOPHILS PERCENT AUTO 2 % (0-6); Hematocrit 42.2 % (33.0-51.0); Hemoglobin 13.8 g/dL (11.5-16.0); IMMATURE GRAN ABSOLUTE AUTO 0.02 K/mm3 (0.00-0.10); IMMATURE GRAN PERCENT AUTO 0 % (0-1); LYMPHOCYTES ABSOLUTE AUTO 1.75 K/mm3 (0.84-5.20); LYMPHOCYTES PERCENT AUTO 25 % (21-46); MONOCYTES ABSOLUTE AUTO 0.56 K/mm3 (0.16-1.47); MONOCYTES PERCENT AUTO 8 % (4-13); Mean Corpuscular HGB Conc 32.7 g/dL (31.5-36.5); Mean Corpuscular Volume 89 fL (80-100); Mean Platelet Volume 9.7 fL (9.1-12.4); NEUTROPHILS ABSOLUTE AUTO 4.56 K/mm3 (1.96-9.15); NEUTROPHILS PERCENT AUTO 64 % (41-73); Platelet Count 181 K/mm3 (150-400); RDW Coefficient Variation 14.1 % (11.7-14.2); RDW Standard Deviation 45.1 fL (35.1-46.3); Red Blood Cell Count 4.76 M/mm3 (3.80-5.20); White Blood Cell Count 7.07 K/mm3 (4.00-11.30)
[2024-07-11 17:59] LABS: Albumin, Blood 3.4 g/dL (3.4-5.0); Albumin/Globulin Ratio 0.9 (0.8-1.8); Bilirubin, Total 0.3 mg/dL (0.1-1.0); Calcium, Blood 9.5 mg/dL (8.5-10.1); Creatinine, Blood 1.2 mg/dL (0.40-1.00); Globulin, Blood 3.9 g/dL (2.2-4.0); Potassium, Blood 4.1 mmol/L (3.5-5.5); Total Protein, Blood 7.3 g/dL (6.4-8.2)
[2024-07-11] MEDS ORDERED: Ondansetron HCl 2 MG / ML 2ML Vial IV PRN (20:50)
[2024-07-11] MEDS ORDERED: Albuterol 2.5 MG/3 ML VIAL INH PRN (20:50)
[2024-07-11] MEDS ORDERED: Metoprolol Succinate 50 MG TABCR PO SCH (21:00)
[2024-07-11] MEDS ORDERED: Tiotropium Bromide 2.5 MCG/ACT MIST INHAL (10 ACT/4 GM) INH SCH (21:00)
[2024-07-11] MEDS ORDERED: FLU VACC TS2024-25(6MOS UP)/PF 45 MCG/0.5 ML SYRINGE IM ONE (22:00)
[2024-07-11 22:48] VITALS: BP 153/91
--- NOTE | 2024-07-11 23:15 | NUR ---
TRANSFER SUMMARY: PT AOX4 CAME UP FROM ER VIA WHEELCHAIR. ABLE TO SELF TRANSFER FROM WHEELCHAIR TO BED WITHOUT ISSUE. ASSESSMENT DONE. PT COMPLAINS OF MILD RESIDUAL CHEST PAIN SAYS ITS MORE LIKE AN ACHE THAN A HEAVY FEELING. DENIES SOB. ORIENTED TO ROOM AND HOW TO USE THE CALL LIGHT. IN BED, BED IN LOWEST POSITION, CALL LIGHT IN REACH. CONTINUIN CARE.
[2024-07-11] MEDS ORDERED: OZEMPIC1 MG/0.72 SC (23:45)
[2024-07-11] MEDS ORDERED: CYCL10 PO (23:45)
[2024-07-11] MEDS ORDERED: LISI5 PO (23:48)
[2024-07-11] MEDS ORDERED: SIMV40 PO (23:49)
[2024-07-11] MEDS ORDERED: STEGLATRO15 MG PO (23:54)
[2024-07-12] MEDS ORDERED: MIRALAX17 GM PO (00:04)
[2024-07-12] MEDS ORDERED: ALBU90OI INH (00:07)
[2024-07-12] MEDS ORDERED: Bisacodyl 5 MG TabEC PO PRN (03:00)
[2024-07-12] MEDS ORDERED: Cyclobenzaprine HCl 10 MG Tab PO PRN (03:00)
[2024-07-12] MEDS ORDERED: Nitroglycerin 0.4 MG SUBL SL PRN (03:00)
[2024-07-12] MEDS ORDERED: Polyethylene Glycol 3350 17 gm PO PRN (03:05)
[2024-07-12 03:17] VITALS: BP 135/94
[2024-07-12] MEDS ORDERED: Morphine Sulfate 4 MG/1 ML Injection IV PRN (04:00)
--- NOTE | 2024-07-12 04:38 | NUR ---
SHIFT SUMMARY: PT AOX4 CAME UP FROM ER SELF TRANSFERRED FROM WHEELCHAIR TO BED. ABLE TO COMMUNICATE, COMPLAINED OF NOT BEING ABLE TO SLEEP SINCE SHE HASNT GOTTEN THE MEDS SHE DIDNT TAKE AT HOME. CALLED PROVIDER AND WILL START THEM TOMORROW. @ ~0330 PT COMPLAINED OF WORSENING CHESTPAIN AND VITALS SHOWED HR IN 140. EKG PERFORMED AND NITRO GIVEN PER EMR. EKG SHOWED SINUS TACH 140'S. PT CLAIMED NITRO HELPED GET PAIN FROM A 10 TO AN 8. PT ENDORSED SOME SOB AND DIAPHORETIC , SATTING 96, PUT ON 2L NC. PROVIDER CALLED AND IV MORPHINE ORDERED. PAIN DOWN TO A 7, HR IN 90S AND MORPHINE GIVEN. PT CLAIMS PAIN DOWN TO A 0 AFTER AND NO SOB. NC REMOVED. PT RESTING IN BED, BED IN LOWEST POSITION, CALL LIGHT IN REACH. CONTINUING CARE.
[2024-07-12] MEDS ORDERED: Insulin Human Lispro 100 Units/ML 3ML Syringe SC SCH ×2 (07:30→08:30)
[2024-07-12 07:50] VITALS: BP 167/82
[2024-07-12] MEDS ORDERED: Clopidogrel Bisulfate 75 MG Tab PO SCH (09:00)
[2024-07-12] MEDS ORDERED: Lisinopril 5 MG Tab PO SCH (09:00)
[2024-07-12] MEDS ORDERED: Loratadine 10 MG Tab PO SCH (09:00)
[2024-07-12] MEDS ORDERED: Isosorbide Mononitrate 30 MG TABCR PO SCH (09:00)
[2024-07-12] MEDS ORDERED: Atorvastatin 40 MG Tab PO SCH (09:00)
[2024-07-12] MEDS ORDERED: AmLODIPine Besylate 5 MG Tab PO SCH (09:00)
[2024-07-12] MEDS ORDERED: Cholecalciferol 1000 Unit Tablet (=25MCG) PO SCH (09:00)
[2024-07-12] MEDS ORDERED: Insulin Glargine-Yfgn 100 Unit/mL 3 ML SYR SC SCH (09:00)
[2024-07-12] MEDS ORDERED: Lactobacil 2-S.Thermo-Bifido 1 1 Cap PO SCH (09:00)
[2024-07-12] MEDS ORDERED: Rosuvastatin Calcium 10 MG Tab PO SCH (09:00)
[2024-07-12] MEDS ORDERED: Empagliflozin 25 MG TAB PO SCH (09:00)
[2024-07-12] MEDS ORDERED: Pregabalin 50 MG Capsule PO SCH (09:00)
[2024-07-12] MEDS ORDERED: Famotidine 20 MG Tab PO SCH (09:00)
[2024-07-12] MEDS ORDERED: Clotrimazole 1% Cream 15 GM Tube TOP SCH (09:00)
[2024-07-12] MEDS ORDERED: Aspirin 81 MG Chew PO SCH (09:00)
[2024-07-12 14:19] VITALS: BP 133/78
[2024-07-12] MEDS ORDERED: Promethazine HCl 25 MG Tab PO PRN (14:30)
[2024-07-12 15:14] VITALS: BP 138/79
--- NOTE | 2024-07-12 18:04 | NUR ---
PT HAS BEEN AOX4 AND COOPERATIVE OF CARE. PT DENIES CHEST PAIN AT THIS TIME. PT REPORTS SHE IS HAVING NAUSEA THROUGHOUT THE DAY AND WAS DIAPHORIC WHEN TALKING WITH THE BREAK NURSE. DR SAAB HAS BEEN NOTIFIED AND ORDERED MEDS TO EMAR AND ORDER TESTING AND CONSULT WITH CARDIOLOGY. PT CURRENTLY EATING AND TALKING ON THE PHONE NO DISTRESS NOTED. INDEPENDENT TO ROOM WILL CONTINUE TO MONITOR.
[2024-07-12 20:56] VITALS: BP 149/78
[2024-07-12] MEDS ORDERED: Zolpidem Tartrate 5 MG Tab PO SCH (21:00)
[2024-07-12] MEDS ORDERED: LURASIDONE 120 MG PO SCH (21:00)
[2024-07-12] MEDS ORDERED: Doxepin HCL 10 MG CAP PO SCH (21:00)
[2024-07-13 01:56] VITALS: BP 139/71
--- NOTE | 2024-07-13 04:29 | NUR ---
SHIFT SUMMARY: PT AOX4 IND IN ROOM. SOME COMPLAINTS OF NAUSEA AT THE BEGINNING OF SHIFT, MEDICATED PER EMR. STATES IT HELPED A BIT. GOT UP TO HAVE A FEW VOIDS BUT HAS OTHERWISE BEEN SLEEPING WELL MOST OF THE NIGHT. DENIES ANY CHEST PAIN OR SHORTNESS OF BREATH. PT RESTING IN BED, BED IN LOWEST POSITION, CALL LIGHT IN REACH. CONTINUING CARE.
[2024-07-13 07:36] VITALS: BP 149/76
[2024-07-13 15:50] VITALS: BP 120/60
--- NOTE | 2024-07-13 16:07 | NUR ---
NO ACUTE CHANGES AOX4 AND COOPERATIVE OF CARE. PT INDEPENDENT AND ABLE TO MAKE NEEDS KNOWNN. PT TREATED FOR NAUSEA X1. STRESS TEST DELAYED TILL TOMORROW DUE TO PRIOR NUCLEAR TEST. DENIES ANY CHEST PAIN. CALL LIGHT WITHIN REACH WILL CONTINUE TO MONITOR.
[2024-07-13 19:29] VITALS: BP 134/71
--- NOTE | 2024-07-14 04:37 | NUR ---
SHIFT SUMMARY: PT AOX4 IND IN ROOM. COMPLAINTS OF HUNGER, GIVEN SOME SNACKS, MADE NPO AT MIDNIGHT. PT TOLERATING IT WELL. SLEPT THROUGH MOST OF THE NIGHT ONLY GETTING UP TO VOID. DENIES SOB AND CHEST PAIN. RESTING IN BED, BED IN LOWEST POSITION, CALL LIGHT IN REACH. CONTINUING CARE.
[2024-07-14 05:21] LABS: BASOPHILS ABSOLUTE AUTO 0.05 K/mm3 (0.00-0.23); BASOPHILS PERCENT AUTO 1 % (0-2); EOSINOPHILS ABSOLUTE AUTO 0.16 K/mm3 (0.00-0.68); EOSINOPHILS PERCENT AUTO 2 % (0-6); Hematocrit 44.1 % (33.0-51.0); Hemoglobin 14.6 g/dL (11.5-16.0); IMMATURE GRAN ABSOLUTE AUTO 0.02 K/mm3 (0.00-0.10); IMMATURE GRAN PERCENT AUTO 0 % (0-1); LYMPHOCYTES ABSOLUTE AUTO 2.34 K/mm3 (0.84-5.20); LYMPHOCYTES PERCENT AUTO 28 % (21-46); MONOCYTES ABSOLUTE AUTO 0.67 K/mm3 (0.16-1.47); MONOCYTES PERCENT AUTO 8 % (4-13); Mean Corpuscular HGB 29.6 pg (26.0-34.0); Mean Corpuscular HGB Conc 33.1 g/dL (31.5-36.5); Mean Corpuscular Volume 90 fL (80-100); Mean Platelet Volume 10.1 fL (9.1-12.4); NEUTROPHILS ABSOLUTE AUTO 5.14 K/mm3 (1.96-9.15); NEUTROPHILS PERCENT AUTO 61 % (41-73); Platelet Count 195 K/mm3 (150-400); RDW Coefficient Variation 14.3 % (11.7-14.2); RDW Standard Deviation 46.5 fL (35.1-46.3); Red Blood Cell Count 4.93 M/mm3 (3.80-5.20); White Blood Cell Count 8.38 K/mm3 (4.00-11.30)
[2024-07-14 05:25] VITALS: BP 131/69
[2024-07-14 06:00] LABS: Albumin, Blood 3.4 g/dL (3.4-5.0); Albumin/Globulin Ratio 0.8 (0.8-1.8); Bilirubin, Total 0.3 mg/dL (0.1-1.0); Bun/Creatinine Ratio 21.4 (12.0-20.0); Calcium, Blood 10.7 mg/dL (8.5-10.1); Creatinine, Blood 1.87 mg/dL (0.40-1.00); Total Protein, Blood 7.4 g/dL (6.4-8.2)
[2024-07-14 08:13] VITALS: BP 126/73
[2024-07-14] MEDS ORDERED: Regadenoson 0.4 MG/5 ML SYRINGE ONE (10:08)
[2024-07-14] MEDS ORDERED: Caffeine Citrated 60 MG/3 ML Vial ONE (10:08)
[2024-07-14] MEDS ORDERED: AMLO5 PO (15:10)
== END 2024-07-14 15:22 | disposition home or self-care (01) ==
LOC: ER 17:06 → MEDS 17:07 → ERHOLD 17:07 → MEDS 22:36
PROVIDERS: Internal Medicine; Student in an Organized Health Care Education/Training Program; ADMIT Student in an Organized Health Care Education/Training Program
DX: R07.89 Other chest pain (principal); I25.10 Atherosclerotic heart disease of native coronary artery without angina pectoris; I25.2 Old myocardial infarction; E11.42 Type 2 diabetes mellitus with diabetic polyneuropathy; I13.10 Hypertensive heart and chronic kidney disease without heart failure, with stage 1 through stage 4 chronic kidney disease, or unspecified chronic kidney disease; E11.22 Type 2 diabetes mellitus with diabetic chronic kidney disease; N18.31 Chronic kidney disease, stage 3a; J44.9 Chronic obstructive pulmonary disease, unspecified; E11.51 Type 2 diabetes mellitus with diabetic peripheral angiopathy without gangrene; F51.04 Psychophysiologic insomnia; F31.9 Bipolar disorder, unspecified; K76.0 Fatty (change of) liver, not elsewhere classified; K59.09 Other constipation; I48.0 Paroxysmal atrial fibrillation; Z87.891 Personal history of nicotine dependence; Z79.4 Long term (current) use of insulin; Z79.02 Long term (current) use of antithrombotics/antiplatelets; Z79.82 Long term (current) use of aspirin; Z79.899 Other long term (current) drug therapy; Z88.6 Allergy status to analgesic agent; Z88.1 Allergy status to other antibiotic agents; Z88.0 Allergy status to penicillin; Z88.5 Allergy status to narcotic agent; Z88.2 Allergy status to sulfonamides; Z91.041 Radiographic dye allergy status; Z88.8 Allergy status to other drugs, medicaments and biological substances; Z95.2 Presence of prosthetic heart valve; Z90.49 Acquired absence of other specified parts of digestive tract; Z89.512 Acquired absence of left leg below knee
CPT/HCPCS: 36415; 71046; 76705; 78452; 78580; 80053; 82947; 83690; 84484; 85025; 85379; 93005; 93010; 93017; 93306; 94640; 94664; 94760; 96374; 96375; 96376; 99285-25; A9270; A9500; A9540; G0378; J0706; J1815; J2270; J2405; J2785

== ENCOUNTER → 2024-08-16 | Outpatient (CLI) | payer OTHER ==
[~2024-08-16] MED LIST changes: +MIRALAX17 GM PO; +OZEMPIC1 MG/0.72 SC; +SIMV40 PO
== END | disposition home or self-care (01) ==
LOC: LAB 13:56 → LAB SHORT 13:56
DX: N39.0 Urinary tract infection, site not specified (principal); R31.9 Hematuria, unspecified
CPT/HCPCS: 87077; 87086; 87186

== ENCOUNTER 2024-09-02 13:13 | Emergency (ER) | payer OTHER ==
[~2024-09-02] VITALS: Ht 160 cm; Wt 89.8 kg
[2024-09-02 14:28] LABS: BASOPHILS ABSOLUTE AUTO 0.03 K/mm3 (0.00-0.23); BASOPHILS PERCENT AUTO 0 % (0-2); EOSINOPHILS ABSOLUTE AUTO 0.09 K/mm3 (0.00-0.68); EOSINOPHILS PERCENT AUTO 1 % (0-6); Hematocrit 42.7 % (33.0-51.0); Hemoglobin 14.2 g/dL (11.5-16.0); IMMATURE GRAN ABSOLUTE AUTO 0.02 K/mm3 (0.00-0.10); IMMATURE GRAN PERCENT AUTO 0 % (0-1); LYMPHOCYTES ABSOLUTE AUTO 1.84 K/mm3 (0.84-5.20); LYMPHOCYTES PERCENT AUTO 27 % (21-46); MONOCYTES ABSOLUTE AUTO 0.63 K/mm3 (0.16-1.47); MONOCYTES PERCENT AUTO 9 % (4-13); Mean Corpuscular HGB 29.5 pg (26.0-34.0); Mean Corpuscular HGB Conc 33.3 g/dL (31.5-36.5); Mean Corpuscular Volume 89 fL (80-100); Mean Platelet Volume 9.4 fL (9.1-12.4); NEUTROPHILS ABSOLUTE AUTO 4.28 K/mm3 (1.96-9.15); NEUTROPHILS PERCENT AUTO 62 % (41-73); Platelet Count 218 K/mm3 (150-400); RDW Coefficient Variation 14.2 % (11.7-14.2); RDW Standard Deviation 45.6 fL (35.1-46.3); Red Blood Cell Count 4.82 M/mm3 (3.80-5.20); White Blood Cell Count 6.89 K/mm3 (4.00-11.30)
[2024-09-02 15:00] LABS: Albumin, Blood 3.7 g/dL (3.4-5.0); Bilirubin, Total 0.2 mg/dL (0.1-1.0); Bun/Creatinine Ratio 12.6 (12.0-20.0); Creatinine, Blood 1.19 mg/dL (0.40-1.00); Globulin, Blood 3.8 g/dL (2.2-4.0); Potassium, Blood 4.5 mmol/L (3.5-5.5); Total Protein, Blood 7.5 g/dL (6.4-8.2)
[2024-09-02] MEDS ORDERED: Meclizine HCl 25 MG Tab PO ONE (16:20)
[2024-09-02 16:26] LABS: Source, Urine Clean Catch
[2024-09-02 16:40] LABS: Appearance, Urine Clear (Clear); Bilirubin, Urine Neg (Neg); Blood, Urine Neg (Neg); Color, Urine Yellow (P-Yellow); Glucose Qualitative, Urine 4+ (Neg); Ketones, Urine Neg (Neg); Leukocyte Esterase, Urine Neg (Neg); Nitrite, Urine Neg (Neg); Protein, Urine 3+ (Neg); Specific Gravity, Urine 1.015 (1.003-1.022); Urobilinogen, Urine NORM (Normal)
[2024-09-02 16:52] LABS: Red Blood Cells, Urine 0-2 /hpf (0-2); Squamous Epithelial Cells Rare /hpf (Few); White Blood Cells, Urine 0-2 /hpf (0-5)
[2024-09-02 16:53] LABS: Bacteria Rare /hpf
[2024-09-02] MEDS ORDERED: Metoclopramide HCl 5MG / ML 2ML Vial IV ONE (17:20)
[2024-09-02] MEDS ORDERED: Diazepam 2 MG Tab PO ONE (17:20)
[2024-09-02 18:00] VITALS: BP 156/80
[2024-09-02] MEDS ORDERED: MOTION RELIEF25 MG PO (18:08)
== END 2024-09-02 18:27 | disposition home or self-care (01) ==
LOC: ER 13:13
PROVIDERS: Emergency Medicine; Student in an Organized Health Care Education/Training Program
DX: R42 Dizziness and giddiness (principal); E78.5 Hyperlipidemia, unspecified; E11.22 Type 2 diabetes mellitus with diabetic chronic kidney disease; E11.51 Type 2 diabetes mellitus with diabetic peripheral angiopathy without gangrene; J44.89 Other specified chronic obstructive pulmonary disease; I25.10 Atherosclerotic heart disease of native coronary artery without angina pectoris; I25.2 Old myocardial infarction; I12.9 Hypertensive chronic kidney disease with stage 1 through stage 4 chronic kidney disease, or unspecified chronic kidney disease; N18.4 Chronic kidney disease, stage 4 (severe); Z87.891 Personal history of nicotine dependence; Z79.4 Long term (current) use of insulin; Z79.84 Long term (current) use of oral hypoglycemic drugs; Z79.899 Other long term (current) drug therapy; Z91.041 Radiographic dye allergy status; Z88.0 Allergy status to penicillin; Z88.2 Allergy status to sulfonamides; Z88.6 Allergy status to analgesic agent; Z88.5 Allergy status to narcotic agent; Z88.1 Allergy status to other antibiotic agents; Z88.8 Allergy status to other drugs, medicaments and biological substances
CPT/HCPCS: 80053; 81001; 85025; 96374; 99283-25; A9270; J2765

== ENCOUNTER 2024-09-25 16:44 | Emergency (ER) | payer OTHER ==
[~2024-09-25] VITALS: Ht 160 cm; Wt 85.7 kg
[~2024-09-25 16:44] MED LIST changes: +MOTION RELIEF25 MG PO
[2024-09-25] MEDS ORDERED: NS 1,000 ML IV SCH (17:10)
[2024-09-25 17:41] LABS: BASOPHILS ABSOLUTE AUTO 0.05 K/mm3 (0.00-0.23); BASOPHILS PERCENT AUTO 1 % (0-2); EOSINOPHILS ABSOLUTE AUTO 0.17 K/mm3 (0.00-0.68); EOSINOPHILS PERCENT AUTO 2 % (0-6); Hematocrit 45.8 % (33.0-51.0); Hemoglobin 14.6 g/dL (11.5-16.0); IMMATURE GRAN ABSOLUTE AUTO 0.03 K/mm3 (0.00-0.10); IMMATURE GRAN PERCENT AUTO 0 % (0-1); LYMPHOCYTES ABSOLUTE AUTO 2.37 K/mm3 (0.84-5.20); LYMPHOCYTES PERCENT AUTO 25 % (21-46); MONOCYTES ABSOLUTE AUTO 0.57 K/mm3 (0.16-1.47); MONOCYTES PERCENT AUTO 6 % (4-13); Mean Corpuscular HGB 28.7 pg (26.0-34.0); Mean Corpuscular HGB Conc 31.9 g/dL (31.5-36.5); Mean Corpuscular Volume 90 fL (80-100); Mean Platelet Volume 9.3 fL (9.1-12.4); NEUTROPHILS ABSOLUTE AUTO 6.23 K/mm3 (1.96-9.15); NEUTROPHILS PERCENT AUTO 66 % (41-73); Platelet Count 199 K/mm3 (150-400); RDW Coefficient Variation 14.3 % (11.7-14.2); RDW Standard Deviation 47.1 fL (35.1-46.3); Red Blood Cell Count 5.09 M/mm3 (3.80-5.20); White Blood Cell Count 9.42 K/mm3 (4.00-11.30)
[2024-09-25 18:00] VITALS: BP 136/90
[2024-09-25 18:01] LABS: Albumin, Blood 3.6 g/dL (3.4-5.0); Albumin/Globulin Ratio 0.9 (0.8-1.8); Bilirubin, Total 0.3 mg/dL (0.1-1.0); Bun/Creatinine Ratio 12.7 (12.0-20.0); Calcium, Blood 9.4 mg/dL (8.5-10.1); Creatinine, Blood 1.1 mg/dL (0.40-1.00); Globulin, Blood 3.8 g/dL (2.2-4.0); Potassium, Blood 4.4 mmol/L (3.5-5.5); Total Protein, Blood 7.4 g/dL (6.4-8.2)
== END 2024-09-25 18:24 | disposition home or self-care (01) ==
LOC: ER 16:44
PROVIDERS: Emergency Medicine
DX: E86.0 Dehydration (principal); R25.1 Tremor, unspecified; N18.4 Chronic kidney disease, stage 4 (severe); I13.0 Hypertensive heart and chronic kidney disease with heart failure and stage 1 through stage 4 chronic kidney disease, or unspecified chronic kidney disease; E78.5 Hyperlipidemia, unspecified; J45.909 Unspecified asthma, uncomplicated; Z87.891 Personal history of nicotine dependence
CPT/HCPCS: 80053; 82947; 84484; 85025; 93005; 93010; 99283-25

== ENCOUNTER 2024-10-18 14:55 | Emergency (ER) | payer OTHER ==
[~2024-10-18] VITALS: Ht 160 cm; Wt 63.5 kg
[2024-10-18 16:07] LABS: BASOPHILS ABSOLUTE AUTO 0.04 K/mm3 (0.00-0.23); BASOPHILS PERCENT AUTO 1 % (0-2); EOSINOPHILS ABSOLUTE AUTO 0.16 K/mm3 (0.00-0.68); EOSINOPHILS PERCENT AUTO 2 % (0-6); Hematocrit 40.9 % (33.0-51.0); Hemoglobin 13.4 g/dL (11.5-16.0); IMMATURE GRAN ABSOLUTE AUTO 0.03 K/mm3 (0.00-0.10); IMMATURE GRAN PERCENT AUTO 0 % (0-1); LYMPHOCYTES ABSOLUTE AUTO 2.05 K/mm3 (0.84-5.20); LYMPHOCYTES PERCENT AUTO 24 % (21-46); MONOCYTES ABSOLUTE AUTO 0.51 K/mm3 (0.16-1.47); MONOCYTES PERCENT AUTO 6 % (4-13); Mean Corpuscular HGB 29.1 pg (26.0-34.0); Mean Corpuscular HGB Conc 32.8 g/dL (31.5-36.5); Mean Corpuscular Volume 89 fL (80-100); Mean Platelet Volume 9.9 fL (9.1-12.4); NEUTROPHILS ABSOLUTE AUTO 5.79 K/mm3 (1.96-9.15); NEUTROPHILS PERCENT AUTO 68 % (41-73); Platelet Count 186 K/mm3 (150-400); RDW Coefficient Variation 14.3 % (11.7-14.2); RDW Standard Deviation 45.9 fL (35.1-46.3); White Blood Cell Count 8.58 K/mm3 (4.00-11.30)
[2024-10-18 16:20] LABS: International Normalized Ratio 1.02; Prothrombin Time Results 10.9 Sec (9.7-11.5)
[2024-10-18 16:51] LABS: Albumin, Blood 3.7 g/dL (3.4-5.0); Albumin/Globulin Ratio 1.1 (0.8-1.8); Bilirubin, Total 0.2 mg/dL (0.1-1.0); Bun/Creatinine Ratio 12.9 (12.0-20.0); Calcium, Blood 9.9 mg/dL (8.5-10.1); Creatinine, Blood 1.24 mg/dL (0.40-1.00); Globulin, Blood 3.4 g/dL (2.2-4.0); Total Protein, Blood 7.1 g/dL (6.4-8.2)
[2024-10-18] MEDS ORDERED: Flagyl500 MG PO (18:13)
[2024-10-18] MEDS ORDERED: Cipro500 MG PO (18:13)
[2024-10-18] MEDS ORDERED: Roxicodone5 MG PO (18:14)
[2024-10-18] MEDS ORDERED: OxyCODONE HCL 5 MG TAB PO ONE (18:15)
[2024-10-18] MEDS ORDERED: MetroNIDAZOLE 500 MG Tab PO ONE (18:15)
[2024-10-18] MEDS ORDERED: Ciprofloxacin 500 MG Tab PO ONE (18:15)
[2024-10-18 18:30] VITALS: BP 138/75
== END 2024-10-18 18:38 | disposition home or self-care (01) ==
LOC: ER 14:55
PROVIDERS: Emergency Medicine
DX: K57.32 Diverticulitis of large intestine without perforation or abscess without bleeding (principal); I12.9 Hypertensive chronic kidney disease with stage 1 through stage 4 chronic kidney disease, or unspecified chronic kidney disease; E11.22 Type 2 diabetes mellitus with diabetic chronic kidney disease; N18.4 Chronic kidney disease, stage 4 (severe); E78.5 Hyperlipidemia, unspecified; I25.10 Atherosclerotic heart disease of native coronary artery without angina pectoris; I25.2 Old myocardial infarction; J44.89 Other specified chronic obstructive pulmonary disease; Z88.8 Allergy status to other drugs, medicaments and biological substances; Z88.1 Allergy status to other antibiotic agents; Z91.041 Radiographic dye allergy status; Z79.4 Long term (current) use of insulin; Z79.82 Long term (current) use of aspirin
CPT/HCPCS: 74176; 80053; 83690; 85025; 85610; 99284-25; A9270

== ENCOUNTER 2024-10-28 20:55 | Emergency (ER) | payer OTHER ==
[~2024-10-28] VITALS: Ht 160 cm; Wt 85.7 kg
[~2024-10-28 20:55] MED LIST changes: +Cipro500 MG PO; +Flagyl500 MG PO; +Roxicodone5 MG PO
[2024-10-28 21:37] LABS: BASOPHILS ABSOLUTE AUTO 0.05 K/mm3 (0.00-0.23); BASOPHILS PERCENT AUTO 1 % (0-2); EOSINOPHILS ABSOLUTE AUTO 0.22 K/mm3 (0.00-0.68); EOSINOPHILS PERCENT AUTO 3 % (0-6); IMMATURE GRAN ABSOLUTE AUTO 0.02 K/mm3 (0.00-0.10); IMMATURE GRAN PERCENT AUTO 0 % (0-1); LYMPHOCYTES PERCENT AUTO 34 % (21-46); MONOCYTES ABSOLUTE AUTO 0.61 K/mm3 (0.16-1.47); MONOCYTES PERCENT AUTO 7 % (4-13); Mean Corpuscular HGB 29.4 pg (26.0-34.0); Mean Corpuscular HGB Conc 33.3 g/dL (31.5-36.5); Mean Corpuscular Volume 88 fL (80-100); Mean Platelet Volume 9.6 fL (9.1-12.4); NEUTROPHILS ABSOLUTE AUTO 4.67 K/mm3 (1.96-9.15); NEUTROPHILS PERCENT AUTO 56 % (41-73); Platelet Count 245 K/mm3 (150-400); RDW Coefficient Variation 13.8 % (11.7-14.2); RDW Standard Deviation 44.3 fL (35.1-46.3); Red Blood Cell Count 4.76 M/mm3 (3.80-5.20); White Blood Cell Count 8.37 K/mm3 (4.00-11.30)
[2024-10-28 21:56] LABS: Albumin, Blood 3.6 g/dL (3.4-5.0); Albumin/Globulin Ratio 0.9 (0.8-1.8); Bilirubin, Total 0.3 mg/dL (0.1-1.0); Bun/Creatinine Ratio 15.3 (12.0-20.0); Calcium, Blood 9.6 mg/dL (8.5-10.1); Creatinine, Blood 1.31 mg/dL (0.40-1.00); Globulin, Blood 4.1 g/dL (2.2-4.0); Potassium, Blood 4.3 mmol/L (3.5-5.5); Total Protein, Blood 7.7 g/dL (6.4-8.2)
[2024-10-28 23:08] LABS: Magnesium, Blood 2.2 mg/dL (1.6-2.4)
[2024-10-28 23:30] VITALS: BP 132/86
== END 2024-10-29 00:11 | disposition home or self-care (01) ==
LOC: ER 20:55
PROVIDERS: Student in an Organized Health Care Education/Training Program
DX: R20.2 Paresthesia of skin (principal); Z87.891 Personal history of nicotine dependence; I12.9 Hypertensive chronic kidney disease with stage 1 through stage 4 chronic kidney disease, or unspecified chronic kidney disease; E11.22 Type 2 diabetes mellitus with diabetic chronic kidney disease; N18.4 Chronic kidney disease, stage 4 (severe); E78.5 Hyperlipidemia, unspecified; J45.909 Unspecified asthma, uncomplicated; Z79.899 Other long term (current) drug therapy; Z79.891 Long term (current) use of opiate analgesic; Z79.890 Hormone replacement therapy; Z79.51 Long term (current) use of inhaled steroids; Z79.52 Long term (current) use of systemic steroids; Z79.1 Long term (current) use of non-steroidal anti-inflammatories (NSAID); Z79.83 Long term (current) use of bisphosphonates; Z79.82 Long term (current) use of aspirin; Z79.64 Long term (current) use of myelosuppressive agent; Z79.810 Long term (current) use of selective estrogen receptor modulators (SERMs); Z88.0 Allergy status to penicillin; Z88.1 Allergy status to other antibiotic agents; Z88.2 Allergy status to sulfonamides; Z88.5 Allergy status to narcotic agent; Z88.8 Allergy status to other drugs, medicaments and biological substances; Z88.9 Allergy status to unspecified drugs, medicaments and biological substances; Z91.018 Allergy to other foods
CPT/HCPCS: 70450; 80053; 83735; 84484; 85025; 93005; 93010; 99284-25

== ENCOUNTER 2024-11-05 09:21 | Emergency (ER) | payer OTHER ==
[~2024-11-05] VITALS: Ht 160 cm; Wt 71.7 kg
[2024-11-05 12:34] LABS: BASOPHILS ABSOLUTE AUTO 0.04 K/mm3 (0.00-0.23); BASOPHILS PERCENT AUTO 0 % (0-2); EOSINOPHILS ABSOLUTE AUTO 0.12 K/mm3 (0.00-0.68); EOSINOPHILS PERCENT AUTO 1 % (0-6); Hematocrit 42.7 % (33.0-51.0); Hemoglobin 13.7 g/dL (11.5-16.0); IMMATURE GRAN ABSOLUTE AUTO 0.05 K/mm3 (0.00-0.10); IMMATURE GRAN PERCENT AUTO 1 % (0-1); LYMPHOCYTES ABSOLUTE AUTO 2.03 K/mm3 (0.84-5.20); LYMPHOCYTES PERCENT AUTO 19 % (21-46); MONOCYTES ABSOLUTE AUTO 0.65 K/mm3 (0.16-1.47); MONOCYTES PERCENT AUTO 6 % (4-13); Mean Corpuscular HGB 28.8 pg (26.0-34.0); Mean Corpuscular HGB Conc 32.1 g/dL (31.5-36.5); Mean Corpuscular Volume 90 fL (80-100); Mean Platelet Volume 10.1 fL (9.1-12.4); NEUTROPHILS PERCENT AUTO 72 % (41-73); Platelet Count 208 K/mm3 (150-400); RDW Coefficient Variation 14.3 % (11.7-14.2); RDW Standard Deviation 46.5 fL (35.1-46.3); Red Blood Cell Count 4.76 M/mm3 (3.80-5.20); White Blood Cell Count 10.49 K/mm3 (4.00-11.30)
[2024-11-05 12:49] LABS: Albumin, Blood 3.7 g/dL (3.4-5.0); Albumin/Globulin Ratio 0.9 (0.8-1.8); Bilirubin, Total 0.4 mg/dL (0.1-1.0); Bun/Creatinine Ratio 14.4 (12.0-20.0); Calcium, Blood 9.5 mg/dL (8.5-10.1); Creatinine, Blood 1.32 mg/dL (0.40-1.00); Total Protein, Blood 7.7 g/dL (6.4-8.2)
[2024-11-05] MEDS ORDERED: NS 1,000 ML IV SCH (13:15)
[2024-11-05] MEDS ORDERED: DiphenhydrAMINE HCl 50 MG/ML 1ML Vial IV ONE ×2 (13:15→14:40)
[2024-11-05] MEDS ORDERED: MethylPREDNISolone Sod Succ 125 MG Vial IV ONE (13:15)
[2024-11-05] MEDS ORDERED: Ketorolac Tromethamine 15mg Vial IV ONE (13:50)
[2024-11-05] MEDS ORDERED: EpiNEPhrine 1 MG/1 ML 1ML Vial ONE (14:47)
[2024-11-05] MEDS ORDERED: Albuterol 2.5 MG/3 ML VIAL INH ONE (14:50)
[2024-11-05] MEDS ORDERED: EpiNEPhrine 1 MG/1 ML 1ML Vial IM ONE ×2 (14:50→15:05)
[2024-11-05] MEDS ORDERED: Famotidine 10 MG/ML 2ML Vial IV ONE (14:55)
[2024-11-05] MEDS ORDERED: Ondansetron HCl 2 MG / ML 2ML Vial IV ONE (15:05)
[2024-11-05] MEDS ORDERED: Dexamethasone Sod Phos 10 MG/ML 1ML VIAL IV ONE (15:20)
[2024-11-05] MEDS ORDERED: EPINEPHrine HCL 11.25 MG/0.5 ML VIAL INH ONE (15:20)
[2024-11-05] MEDS ORDERED: Magnesium Citrate 300 ML BTL PO ONE (15:25)
[2024-11-05] MEDS ORDERED: Lactulose 200 GM/300 ML Enema 300ML BTL PR ONE (15:25)
[2024-11-05] MEDS ORDERED: EPIPEN0.3 MG/0.3 IM (15:35)
[2024-11-05] MEDS ORDERED: FAMO20 PO (15:35)
[2024-11-05] MEDS ORDERED: PRED20 PO (15:35)
[2024-11-05] MEDS ORDERED: BENADRYL25 MG PO (15:35)
[2024-11-05 16:00] VITALS: BP 163/89
[2024-11-05 16:10] LABS: Source, Urine Clean Catch
[2024-11-05 16:13] LABS: Appearance, Urine Clear (Clear); Bilirubin, Urine Neg (Neg); Blood, Urine Neg (Neg); Color, Urine Yellow (P-Yellow); Glucose Qualitative, Urine 4+ (Neg); Ketones, Urine Neg (Neg); Leukocyte Esterase, Urine Neg (Neg); Nitrite, Urine Neg (Neg); Protein, Urine 3+ (Neg); Urobilinogen, Urine NORM (Normal)
[2024-11-05 16:22] LABS: Bacteria Mod /hpf; Red Blood Cells, Urine 0-2 /hpf (0-2); Squamous Epithelial Cells Few /hpf (Few); White Blood Cells, Urine 0-2 /hpf (0-5)
== END 2024-11-05 17:34 | disposition home or self-care (01) ==
LOC: ER 09:21
PROVIDERS: Student in an Organized Health Care Education/Training Program
DX: T88.6XXA Anaphylactic reaction due to adverse effect of correct drug or medicament properly administered, initial encounter (principal); T50.8X5A Adverse effect of diagnostic agents, initial encounter; K59.00 Constipation, unspecified; R10.32 Left lower quadrant pain; R10.12 Left upper quadrant pain; I12.9 Hypertensive chronic kidney disease with stage 1 through stage 4 chronic kidney disease, or unspecified chronic kidney disease; E11.22 Type 2 diabetes mellitus with diabetic chronic kidney disease; N18.4 Chronic kidney disease, stage 4 (severe); E78.5 Hyperlipidemia, unspecified; J44.89 Other specified chronic obstructive pulmonary disease
CPT/HCPCS: 73030; 74018; 74177; 76770; 80053; 81001; 83690; 85025; 87086; 93005; 93010; 94640; 94664; 96361; 96372-59; 96374-59; 96375; 96376; 99284-25; A9270; J0171; J1100; J1200; J1885; J2405; J2919; J7030; Q9967

== ENCOUNTER 2024-11-07 01:57 | Emergency (ER) | payer OTHER ==
[~2024-11-07] VITALS: Ht 165.1 cm; Wt 99.8 kg
[~2024-11-07 01:57] MED LIST changes: +EPIPEN0.3 MG/0.3 IM; +FAMO20 PO
[2024-11-07] MEDS ORDERED: Midazolam HCL 50 MG in NS 40 ML IV SCH (02:15)
[2024-11-07] MEDS ORDERED: EpiNEPhrine 1 MG/1 ML 1ML Vial ONE (02:44)
[2024-11-07 02:49] LABS: Hematocrit 49.4 % (33.0-51.0); Mean Corpuscular HGB 28.6 pg (26.0-34.0); Mean Corpuscular HGB Conc 30.4 g/dL (31.5-36.5); Mean Corpuscular Volume 94 fL (80-100); Mean Platelet Volume 11.5 fL (9.1-12.4); NRBC ABSOLUTE 0.09 K/mm3 (0.00-0.02); NRBC Auto 0.6 /100 WBC (0.0-0.2); Platelet Count 186 K/mm3 (150-400); RDW Coefficient Variation 15.1 % (11.7-14.2); RDW Standard Deviation 52.5 fL (35.1-46.3); Red Blood Cell Count 5.24 M/mm3 (3.80-5.20); White Blood Cell Count 14.01 K/mm3 (4.00-11.30)
[2024-11-07 02:50] LABS: Source, Urine Clean Catch
[2024-11-07 02:58] LABS: Blood, Urine 1+ (Neg); Glucose Qualitative, Urine 4+ (Neg); Ketones, Urine 1+ (Neg); Leukocyte Esterase, Urine 1+ (Neg); Nitrite, Urine Neg (Neg); Protein, Urine 3+ (Neg); Specific Gravity, Urine 1.015 (1.003-1.022); Urobilinogen, Urine 3+ (Normal)
[2024-11-07] MEDS ORDERED: fentaNYL citrate 1,000 MCG in NS 80 ML IV SCH (03:00)
[2024-11-07 03:04] LABS: Albumin, Blood 2.5 g/dL (3.4-5.0); Albumin/Globulin Ratio 0.7 (0.8-1.8); Bilirubin, Total 1.3 mg/dL (0.1-1.0); Bun/Creatinine Ratio 20.5 (12.0-20.0); Creatinine, Blood 2.78 mg/dL (0.40-1.00); Globulin, Blood 3.7 g/dL (2.2-4.0); Potassium, Blood 5.4 mmol/L (3.5-5.5); Total Protein, Blood 6.2 g/dL (6.4-8.2)
[2024-11-07 03:04] LABS: Bilirubin, Urine 2+ (Neg); Color, Urine Amber (P-Yellow)
[2024-11-07 03:05] LABS: Amorphous Mod (0-Heavy); Appearance, Urine Clear (Clear); Bacteria Rare /hpf; Granular Casts 0-2 /lpf (0); Red Blood Cells, Urine 0-2 /hpf (0-2); Squamous Epithelial Cells Rare /hpf (Few); White Blood Cells, Urine Not Seen /hpf (0-5)
[2024-11-07] MEDS ORDERED: Phenylephrine HCl in 0.9% NaCl 250 ML IV SCH (03:05)
[2024-11-07 03:23] LABS: BAND PERCENT MAN 31 % (0-8); BASOPHILS PERCENT MAN 0 % (0-2); EOSINOPHILS PERCENT MAN 0 % (0-6); LYMPHOCYTES ABSOLUTE MAN 5.18 K/mm3 (0.84-5.20); LYMPHOCYTES PERCENT MAN 37 % (21-46); METAMYELOCYTE ABSOLUTE MAN 0.98 K/mm3 (0.00-0.00); METAMYELOCYTE PERCENT MAN 7 % (0-0); MONOCYTES ABSOLUTE MAN 1.68 K/mm3 (0.16-1.47); MONOCYTES PERCENT MAN 12 % (4-13); MYELOCYTE ABSOLUTE MAN 0.42 K/mm3 (0.00-0.00); MYELOCYTE PERCENT MAN 3 % (0-0); NEUTROPHILS ABSOLUTE MAN 5.74 K/mm3 (1.96-9.15); SEG NEUTROPHILS PERCENT MAN 10 % (41-73); TOTAL CELLS COUNTED 100
[2024-11-07 03:25] LABS: pH Blood Venous 6.81 (7.34-7.37)
[2024-11-07 03:26] LABS: Base Excess Venous -25.5 mmol/L; Bicarbonate Venous 7.1 mmol/L (24.0-30.0); PCO2 Venous 54.8 mmHg (38-42)
[2024-11-07] MEDS ORDERED: Albuterol 2.5 MG/3 ML VIAL ONE (03:30)
[2024-11-07] MEDS ORDERED: Sodium Bicarb 8.4% Inj 150 MEQ in Dextrose 5% 1,000 ML IV SCH (03:35)
[2024-11-07] MEDS ORDERED: Albuterol 2.5 MG/3 ML VIAL INH ONE (03:40)
[2024-11-07 03:43] LABS: Calcium, Ionized (POC) 1.15 mmol/L (1.10-1.46); Chloride (POC) 118 mmol/L (98-108); Creatinine (POC) 2.4 mg/dL (0.6-1.0); Glucose (ISTAT POC) 102 mg/dL (70-99); Hemoglobin (POC) 9.2 g/dL (12.0-16.0); Potassium (POC) 3.8 mmol/L (3.5-5.5); Sodium (POC) 143 mmol/L (135-148); Total CO2 (POC) 12 mmol/L (21-32)
[2024-11-07] MEDS ORDERED: Vasopressin 20 UNITS in NS 100 ML IV SCH (04:00)
[2024-11-07 04:03] LABS: Calcium, Blood 12.7 mg/dL (8.5-10.1)
[2024-11-07] MEDS ORDERED: MetroNIDAZOLE 500MG/NS 100 ml 100 ML IV ONE (06:10)
[2024-11-07] MEDS ORDERED: LevoFLOXacin 750 MG/D5W 150ML 150 ML IV ONE (06:10)
[2024-11-07] MEDS ORDERED: Midazolam HCl 1MG / ML 2ML Vial IV ONE (09:20)
[2024-11-07] MEDS ORDERED: Scopolamine Hydrobromide Patch TOP ONE (09:40)
[2024-11-07 09:50] VITALS: BP 85/60
[2024-11-07] MEDS ORDERED: Calcium Chloride 10% 10 ML SYR IV ONE (13:02)
[2024-11-07] MEDS ORDERED: Sodium Bicarb 8.4% 50 mEq Syringe IV ONE (13:02)
[2024-11-07] MEDS ORDERED: Phenylephrine HCl 100 MCG/ML-NS 10MLSYR (1MG/10ML) IV ONE (13:02)
[2024-11-07] MEDS ORDERED: EPINEPhrine HCl 0.1 MG/ML 10ML SYR IV ONE (13:02)
== END 2024-11-07 20:05 ==
LOC: ER 01:57
PROVIDERS: Student in an Organized Health Care Education/Training Program
DX: I46.9 Cardiac arrest, cause unspecified (principal); J96.01 Acute respiratory failure with hypoxia; G93.1 Anoxic brain damage, not elsewhere classified; N17.9 Acute kidney failure, unspecified; R74.01 Elevation of levels of liver transaminase levels; E87.20 Acidosis, unspecified; E11.22 Type 2 diabetes mellitus with diabetic chronic kidney disease; I12.9 Hypertensive chronic kidney disease with stage 1 through stage 4 chronic kidney disease, or unspecified chronic kidney disease; N18.4 Chronic kidney disease, stage 4 (severe); I25.10 Atherosclerotic heart disease of native coronary artery without angina pectoris; I25.2 Old myocardial infarction; J44.9 Chronic obstructive pulmonary disease, unspecified; Z91.041 Radiographic dye allergy status; Z88.0 Allergy status to penicillin; Z88.2 Allergy status to sulfonamides; Z88.8 Allergy status to other drugs, medicaments and biological substances; Z91.09 Other allergy status, other than to drugs and biological substances; Z88.6 Allergy status to analgesic agent; Z79.4 Long term (current) use of insulin; Z79.899 Other long term (current) drug therapy; Z79.82 Long term (current) use of aspirin; Z95.2 Presence of prosthetic heart valve
CPT/HCPCS: 36556; 70450; 71045; 72125; 74018; 74176; 80047; 80053; 81001; 82803; 83605; 84484; 85014; 85025; 92950; 93005; 93010; 94002; 94644; 94664; 96365-59; 96366-59; 96368; 96375-59; 99291-25; A9270; C1751; J0171; J1956; J2250; J2371; J3010; J7060; J7070